=== PATIENT | male | born 1985 | race Caucasian/White ===

== ENCOUNTER 2023-02-04 03:17 | Inpatient (IN) | payer OTHER, SELFPAY ==
--- NOTE | ~2023-02-04 | FL_ITS ---
EXAMINATION: XR FLUOROSCOPY WITH IMAGES CLINICAL INFORMATION: Left tibia pilon fracture. COMPARISON: Left leg CT and x-ray studies dated 02/04/2023. TECHNIQUE: Fluoroscopy Supervised By: Dr. Villalobos. FL/FL guidance in OR IMPRESSION: Fluoroscopic guidance provided for external fixation of the left tibia and fibula. Fluoroscopy Time: 0.2. Cumulative Dose: 0.985 mGy. DAP: 0.0171 Gycm2. Images: 8. FINDINGS/IMPRESSION: Final images show an external fixation device in place with overall good anatomic alignment. Please refer to the operative report for more detailed findings.
--- NOTE | ~2023-02-04 | CT_ITS ---
EXAMINATION: CT LOWER LEG LT W IV CON CLINICAL INFORMATION: Reason for Exam trauma to lower leg COMPARISON: Radiographs from earlier same date TECHNIQUE: Multidetector CT imaging of the left lower leg was performed after the administration of 85 mL Omnipaque 350 intravenous contrast. Coronal and sagittal reformats created on an independent workstation were reviewed. This CT examination was performed using dose optimization techniques as appropriate, variously including the following: *Automated exposure control *Adjustment of mA and/or kV according to patient size (this includes techniques or standardized protocols for targeted exams where dose is matched to indication/reason for exam; i.e. extremities or head) *Use of iterative reconstruction technique DLP: 281 mGy-cm FINDINGS: Extensively comminuted fracture of the tibial plafond and with up to 2 cm displacement of the fracture fragments transversely. The dominant distal medial fracture fragment remains aligned with the talus and is displaced medially 2 cm from the largest component of the fracture which contains remainder of the tibia. There are innumerable intervening comminution fragments. The lateral clear space is widened, and the distal tibias interposed between the talar dome and distal fibula. There is a tiny avulsion fracture involving the posteromedial cortex of the distal fibula which is otherwise intact. There is a nondisplaced transversely oriented fracture through the inferior talus involving the posterior subtalar joint. The included calcaneus is intact. Diffuse soft tissue swelling about the lower extremity and foot. CT/CT lower leg LT w IV con IMPRESSION: * Extensively comminuted intra-articular fracture of the tibial plafond as described. * Tiny avulsion fracture involving the posteromedial cortex of the distal fibula. * Nondisplaced transversely oriented fracture through the inferior talus involving the posterior subtalar joint.
--- NOTE | ~2023-02-04 | XR_ITS ---
EXAMINATION: XR tibia fibula LT 2V, XR foot LT min 3V CLINICAL INFORMATION: Reason for Exam pain/swelling s/p trauma COMPARISON: None. TECHNIQUE: AP and lateral views of the left tib-fib 3 views of left foot FINDINGS: Comminuted fractures of the tibial plafond with splaying at the articular surface with medial displacement of a fracture fragment remaining contiguous with the talar dome and proximal displacement. Fibula is intact. Talar dome intact. No fractures of the foot. Diffuse soft tissue swelling. XR/XR tibia fibula LT 2V IMPRESSION: Pilon fracture as described.
--- NOTE | ~2023-02-04 | XR_ITS ---
EXAMINATION: XR tibia fibula LT 2V, XR foot LT min 3V CLINICAL INFORMATION: Reason for Exam pain/swelling s/p trauma COMPARISON: None. TECHNIQUE: AP and lateral views of the left tib-fib 3 views of left foot FINDINGS: Comminuted fractures of the tibial plafond with splaying at the articular surface with medial displacement of a fracture fragment remaining contiguous with the talar dome and proximal displacement. Fibula is intact. Talar dome intact. No fractures of the foot. Diffuse soft tissue swelling. XR/XR foot LT min 3V IMPRESSION: Pilon fracture as described.
[2023-02-04 03:32] VITALS: BP 114/78; PULSE 79; RESP 18; TEMP 36.4; O2SAT 95; BMI 28.3
--- NOTE | 2023-02-04 04:07 | ED_ITS ---
HPI - Extremity Injury (Lower) General Chief Complaint: Extremity Injury, Lower Stated Complaint: l ankle leg inj Time Seen by Provider: 02/04/23 03:53 Source: patient Mode of arrival: ambulatory History of Present Illness HPI Narrative: This is a 37-year-old male who presents and reports to me that he was on a ladder when it slipped and so he rode it down but then his left leg slipped off and was caught underneath a rung of the ladder whenever he landed on the ground. Patient reports he does have footdrop at baseline but states that he does not have any feeling in his foot now. Patient reports he attempted to be seen at [facility] yesterday but after waiting for 8 hours he left. Related Data Allergies Allergy/AdvReac Type Severity Reaction Status Date / Time Penicillins Allergy Hives Verified 02/04/23 03:31 Review of Systems Review of Systems: Pertinent positives and negatives as stated in HPI PMFSH Past Medical History Source: nursing notes reviewed Social History Social History Smoked in Last 30 Days: Yes Use of substances other than those prescribed or required for medical reasons: Yes Substance Use Type: Opiates Substance Use Frequency: Chronic Longstanding Last Used Substance: Days (ago) Any prior treatment program specific to substance use: No Advance Directives: No Advance Directives Information Provided: Yes Physical Exam Vital Signs: Vital Signs: Last Vital Signs Temp 97.6 F 02/04/23 03:32 Pulse 52 02/04/23 06:21 Resp 12 02/04/23 06:21 BP 121/70 02/04/23 06:21 Pulse Ox 97 02/04/23 06:21 O2 Del Method Room Air 02/04/23 06:21 BMI result Body Mass Index 28.3 VITAL SIGNS: Reviewed. GENERAL: Well developed, well nourished, in no acute distress. HEAD: Normocephalic/atraumatic EYES: PERRLA, EOMI EARS: Ext canals without abnormality NOSE: Nares patent bilateral OROPHARYNX: no oral lesions noted, posterior pharynx clear NECK: Supple, no adenopathy LUNGS: Normal breath sounds. No adventitious sounds or accessory muscle use. SpO2<95> CARDIOVASCULAR: Regular rate and rhythm without noted murmurs ABDOMEN: Soft, non-tender, non-distended with bowel sounds. MUSCULOSKELETAL: No tenderness, deformities, or effusions noted on gross inspection. EXTREMITIES: No cyanosis, clubbing or edema. LLE: There is significant ecchymosis from the knee all the way down the plant security guard ior medial aspect and into the foot, the foot feels significantly taut, toes are able to be moved, there is a noted blister to the lateral malleolus, the calf compartments feel soft SKIN: Inspection of the skin reveals no rashes NEUROLOGIC: Alert and oriented x 4. Strength and sensation to light touch were grossly intact x 4. Medications Administered Generic Name Dose Route Start Last Admin Trade Name Freq PRN Reason Stop Dose Admin Lactated Ringer's 1,000 mls @ 125 mls/hr 02/04/23 06:30 02/04/23 06:39 Lr IVCONT 125 mls/hr .Q8H JOSE ALFREDO Administration Discontinued Medications Generic Name Dose Route Start Last Admin Trade Name Freq PRN Reason Stop Dose Admin Hydromorphone HCl 0.5 mg 02/04/23 05:19 02/04/23 05:47 Hydromorphone Hcl 0.5 Mg/0.5 Ml Syringe IVPUSH 02/04/23 05:20 0.5 mg ONCE ONE Administration Protocol Sodium Chloride 1,000 mls @ 999 mls/hr 02/04/23 04:15 02/04/23 05:48 Ns IV 02/04/23 05:15 Infused .Q1H1M JOSE ALFREDO Infusion Iohexol 85 ml 02/04/23 05:45 02/04/23 05:45 Iohexol 350 Mg/Ml 100 Ml Infus..Btl IV 02/04/23 05:46 85 ml ONCE ONE Administration Ketorolac Tromethamine 15 mg 02/04/23 04:04 02/04/23 04:33 Ketorolac Tromethamine 30 Mg/Ml Vial IVPUSH 02/04/23 04:05 15 mg ONCE ONE Administration Medical Decision Making Medical Decision Making MDM Narrative: 37-year-old male with history and clinical presentation of traumatic injury to the left lower extremity, neurologic changes, he felt greater than 12 hours previously raising concerns for the potential of vascular neurologic compromise, calf compartments feel soft so do not suspect compartment syndrome within these compartments. On prelim review of x-rays there is apparent comminuted tibial fracture. 0416: I discussed case with orthopedic service. Who agrees with Ct scan of extremity and will eval patient in the AM. I reviewed all investigations and hematologic indices are negative for leukocytosis or left shift, there is no thrombocytopenia there is a mild normocytic anemia. Coagulation studies are grossly within normal limits, chemi stry and states are negative for MOE and there are no electrolyte or liver enzyme abnormalities. COVID is negative and x-ray was noted to be positive for pilon fracture, follow-up with CT scan with IV contrast demonstrates consistent findings of pilon fracture but also noted to have a nondisplaced transverse fracture through the inferior talus, a small avulsion fracture of the distal fibula. Patient is much more comfortable on re-evaluation after having receive 0.5 mg of Dilaudid, IV fluids were started. 0710: Orthopedic service has evaluated the patient at bedside and accept admission. Differential Diagnosis Differential Diagnoses: The differential diagnosis associated with the presentation includes Please see the discussion Admission/Observation Consideration of admission/observation: Escalation of care including admission/observation considered Please see the discussion above Consult Healthcare Provider Management of the patient was discussed with: Tank Builder Supervisor Please see the discussion above Lab Data MDM Lab Attestation statement: I reviewed the patient's lab results. Please see the discussion above 02/04/23 04:29 02/04/23 04:29 Labs: Lab Results 02/04/23 02/04/23 02/04/23 Range/Units 04:29 04:29 04:29 WBC 8.5 (4.8-10.8) X10*3/uL RBC 3.82 L (4.60-5.80) X10*6/uL Hgb 11.1 L (14.0-18.0) g/dl Hct 33.6 L (42.0-52.0) % MCV 88.0 (80.0-98.0) fL MCH 29.1 (27.0-33.0) pg MCHC 33.0 (31.0-36.0) g/dl RDW 12.9 (11.0-16.0) % Plt Count 190 (160-400) X10*3/uL MPV 10.6 (9.4-12.4) fL Immature Gran % (Auto) 0.4 (0.0-0.4) % Neut % (Auto) 63.6 (45-73) % Lymph % (Auto) 25.1 (20-40) % Starke % (Auto) 9.8 (2-11) % Eos % (Auto) 0.6 (0-4) % Baso % (Auto) 0.5 (0-2) % Lymph # (Auto) 2.1 (1.2-4.9) X10*3/uL Starke # (Auto) 0.8 (0.1-1.2) X10*3/uL Eos # (Auto) 0.1 (0.0-0.4) X10*3/uL Baso # (Auto) 0.0 (0.0-0.2) X10*3/uL Abs Immat Gran (auto) 0.03 (0.00-0.03) X10*3/uL Absolute Neuts (auto) 5.4 (2.0-8.3) x10*3/uL Absolute Nucleated RBC 0.000 (0.0-0.012) X10*3/uL Nucleated RBC % (auto) 0.0 (0.0-0.2) /100WBC PT 12.8 (11.1-13.3) SEC INR 1.1 (0.9-1.1) Sodium 139 (135-145) mmol/L Potassium 4.0 (3.3-5.1) mmol/L Chloride 103 (96-108) mmol/L Carbon Dioxide 26 (22-29) mmol/L Anion Gap 14 (12-20) BUN 13 (9-16) mg/dL Creatinine 0.73 (0.5-1.4) mg/dL Estim Creat Clear Calc 119.3 Estimated GFR > 60 Random Glucose 131 H (60-115) mg/dL Calcium 9.1 (8.4-10.2) mg/dL Total Bilirubin 0.3 (0.0-1.0) mg/dL AST 25 (5-37) U/L ALT 26 (0-40) U/L Alkaline Phosphatase 57 (39-117) U/L Total Protein 6.6 (6.5-8.0) g/dL Albumin 3.7 (3.5-5.0) g/dL COVID-19 (LALIT) (Negative) COVID-19 Clin Com 02/04/23 Range/Units 04:29 WBC (4.8-10.8) X10*3/uL RBC (4.60-5.80) X10*6/uL Hgb (14.0-18.0) g/dl Hct (42.0-52.0) % MCV (80.0-98.0) fL MCH (27.0-33.0) pg MCHC (31.0-36.0) g/dl RDW (11.0-16.0) % Plt Count (160-400) X10*3/uL MPV (9.4-12.4) fL Immature Gran % (Auto) (0.0-0.4) % Neut % (Auto) (45-73) % Lymph % (Auto) (20-40) % Starke % (Auto) (2-11) % Eos % (Auto) (0-4) % Baso % (Auto) (0-2) % Lymph # (Auto) (1.2-4.9) X10*3/uL Starke # (Auto) (0.1-1.2) X10*3/uL Eos # (Auto) (0.0-0.4) X10*3/uL Baso # (Auto) (0.0-0.2) X10*3/uL Abs Immat Gran (auto) (0.00-0.03) X10*3/uL Absolute Neuts (auto) (2.0-8.3) x10*3/uL Absolute Nucleated RBC (0.0-0.012) X10*3/uL Nucleated RBC % (auto) (0.0-0.2) /100WBC PT (11.1-13.3) SEC INR (0.9-1.1) Sodium (135-145) mmol/L Potassium (3.3-5.1) mmol/L Chloride (96-108) mmol/L Carbon Dioxide (22-29) mmol/L Anion Gap (12-20) BUN (9-16) mg/dL Creatinine (0.5-1.4) mg/dL Estim Creat Clear Calc Estimated GFR Random Glucose (60-115) mg/dL Calcium (8.4-10.2) mg/dL Total Bilirubin (0.0-1.0) mg/dL AST (5-37) U/L ALT (0-40) U/L Alkaline Phosphatase (39-117) U/L Total Protein (6.5-8.0) g/dL Albumin (3.5-5.0) g/dL COVID-19 (LALIT) Negative (Negative) COVID-19 Clin Com See Note Radiology Impression Discussion of test interpretation with radiology: I have reviewed the r adiologist's reading. Radiologist Impression: Please see the discussion above Critical Care Time Critical Care Time Critical Care Time: Yes Total Critical Care Time: 30 Attestation: I personally attest to this time spent taking care of the patient. Discharge Plan Discharge Clinical Impression: Closed pilon fracture of tibia, Fracture of talus, Avulsion fracture of distal fibula Patient Disposition: Admitted As Inpatient
[2023-02-04] MEDS: Ketorolac Tromethamine 30 MG/ML VIAL 15 MG IVPUSH (04:33)
[2023-02-04] MEDS: 0.9 % Sodium Chloride 1,000 ML 999 ML IV (04:33)
[2023-02-04 04:34] LABS: MANUAL DIFF FLAG NO
[2023-02-04 04:36] LABS: Basophils Percent Auto 0.5 % (0-2); Eosinophils Absolute Auto 0.1 X10*3/uL (0.0-0.4); Eosinophils Percent Auto 0.6 % (0-4); Hematocrit 33.6 % (42.0-52.0); Hemoglobin 11.1 g/dl (14.0-18.0); Imm Gran Abs Auto 0.03 X10*3/uL (0.00-0.03); Imm Gran Pct Auto 0.4 % (0.0-0.4); Lymphocytes Absolute Auto 2.1 X10*3/uL (1.2-4.9); Lymphocytes Percent Auto 25.1 % (20-40); Mean Corpuscular Hemoglobin 29.1 pg (27.0-33.0); Mean Platelet Volume 10.6 fL (9.4-12.4); Monocytes Absolute Auto 0.8 X10*3/uL (0.1-1.2); Monocytes Percent Auto 9.8 % (2-11); Neutrophils Absolute Auto 5.4 x10*3/uL (2.0-8.3); Neutrophils Percent Auto 63.6 % (45-73); Platelet Count 190 X10*3/uL (160-400); Red Blood Count 3.82 X10*6/uL (4.60-5.80); Red Cell Distribution Width 12.9 % (11.0-16.0); White Blood Count 8.5 X10*3/uL (4.8-10.8)
--- NOTE | 2023-02-04 04:39 | PC.NURSE ---
Pt aox3. Left leg elevated, ice pack applied. Pt tolerated well. 22G IV line placed on the L FA. Medicated as ordered. Pending lab results and ct scan
[2023-02-04 04:42] LABS: INTERNATIONAL NORM RATIO 1.1 (0.9-1.1); Prothrombin Time 12.8 SEC (11.1-13.3)
[2023-02-04 04:50] LABS: COVID-19 Test Negative (Negative); IDNOW Serial# 6674DD1D
[2023-02-04 04:51] LABS: Alanine Aminotransferase 26 U/L (0-40); Albumin Level 3.7 g/dL (3.5-5.0); Alkaline Phosphatase 57 U/L (39-117); Anion Gap 14 (12-20); Aspartate Amino Transferase 25 U/L (5-37); Bilirubin Total 0.3 mg/dL (0.0-1.0); Blood Urea Nitrogen 13 mg/dL (9-16); Calcium 9.1 mg/dL (8.4-10.2); Carbon Dioxide 26 mmol/L (22-29); Chloride 103 mmol/L (96-108); Creatinine Clr Calc Pharmacy 119.3; Estimated Glomerular Filt Rate > 60; Glucose Random 131 mg/dL (60-115); Sodium 139 mmol/L (135-145); Total Protein 6.6 g/dL (6.5-8.0)
[2023-02-04] MEDS: iohexoL 350 MG/ML 100 ML INFUS..BTL 85 ML IV (05:45)
[2023-02-04] MEDS: HYDROmorphone HCl 0.5 MG/0.5 ML SYRINGE IVPUSH (05:47)
[2023-02-04 06:21] VITALS: BP 121/70; PULSE 52; RESP 12; O2SAT 97
[2023-02-04] MEDS: Lactated Ringers 1,000 ML 125 ML IVCONT (06:39)
--- NOTE | 2023-02-04 07:19 | PM.HPOR ---
History of Present Illness History of Present Illness Date of Service: 02/04/23 Chief complaint: Left tibial pilon fracture Narrative: Nakul Paul is a 37 year old male with no significant PMH who presented to the ED overnight stating that he was on a ladder when it slipped and so he rode it down but then his left leg slipped off and was caught underneath a rung of the ladder when he landed on the ground.? Patient reports he does have footdrop at baseline reports numbness and tingling.? Patient reports he attempted to be seen at [facility] yesterday but after waiting for 8 hours he left. X-rays obtained in the ED revealed a tibial pilon fracture. The patient was admitted to the orthopedic service for further evaluation and treatment. Review of Systems Review of Systems: Yes all other systems are reviewed and are negative [facility] Social History Social History Smoked in Last 30 Days: Yes Use of substances other than those prescribed or required for medical reasons: Yes Substance Use Type: Opiates Substance Use Frequency: Chronic Longstanding Last Used Substance: Days (ago) Any prior treatment program specific to substance use: No Advance Directives: No Advance Directives Information Provided: Yes Meds Allergies Allergy/AdvReac Type Severity Reaction Status Date / Time Penicillins Allergy Hives Verified 02/04/23 03:31 Active Medications: Current Medications Lactated Ringer's (Lr) 1,000 mls @ 125 mls/hr IVCONT .Q8H JOSE ALFREDO Last Admin: 02/04/23 06:39 Dose: 125 mls/hr Home Medications Medication Instructions Recorded Confirmed Last Taken Type buprenorphine 300 mg/1.5 mL 300 mg subcut Q OTHER DAY 02/04/23 Unknown History solution,exten.rel.subcutaneous syringe (Sublocade) buprenorphine 8 mg-naloxone 2 mg 1 film sublingual BID 02/04/23 Unknown History sublingual film (Suboxone) clonazepam 1 mg tablet 1 mg PO TID PRN Anxiety 02/04/23 Unknown History clonidine HCl 0.1 mg tablet 0.1 mg PO Q4-6H PRN Anxiety 02/04/23 Unknown History hydroxyzine HCl 50 mg tablet 50 mg PO Q6-8H PRN Anxiety 02/04/23 Unknown History ibuprofen 600 mg tablet 600 mg PO Q6H PRN Pain 02/04/23 Unknown History trazodone 50 mg tablet 50 - 100 mg PO BEDTIME 02/04/23 Unknown History Physical Exam Vital Signs: Vital Signs: Last Vital Signs Temp 97.6 F 02/04/23 03:32 Pulse 52 02/04/23 06:21 Resp 12 02/04/23 06:21 BP 121/70 02/04/23 06:21 Pulse Ox 97 02/04/23 06:21 O2 Del Method Room Air 02/04/23 06:21 BMI result Body Mass Index 28.3 Const: General: cooperative, healthy appearing and no acute distress Resp: Effort & Inspection: normal respiratory effort and able to speak in complete sentences Cardio: Rate: regular rate Peripheral pulses: Peripheral pulses 2+ throughout GI: Palpation (GI): Soft to palpation Skin: Lesions: no lesions Rashes: no rashes Extrem: Other: Left lower extremity is splinted in posterior splint. Able to move digits. Reports numbness and tingling in all digits. Capillary refill is brisk. Ecchymosis is seen proximal tibial at the top of the splint. Results Labs 02/04/23 04:29 02/04/23 04:29 Labs: Abnormal lab results 02/04/23 02/04/23 Range/Units 04:29 04:29 RBC 3.82 L (4.60-5.80) X10*6/uL Hgb 11.1 L (14.0-18.0) g/dl Hct 33.6 L (42.0-52.0) % Random Glucose 131 H (60-115) mg/dL H & H 02/04/23 Range/Units 04:29 Hgb 11.1 L (14.0-18.0) g/dl Hct 33.6 L (42.0-52.0) % Coagulation 02/04/23 Range/Units 04:29 INR 1.1 (0.9-1.1) All other labs normal. Assessment and Plan (1) Closed pilon fracture of tibia: Status: Acute I discussed the case with Dr. Villalobos and explained the extent of the injury to the patient and options available which include surgical intervention. I explained the procedure in detail along with the length of recovery and rehab course. I explained the risk, benefits and alternatives. Risk including, but not limited to infection, blood clots, bleeding, non union or malunion and nerve/tissue damage to surrounding areas. I answered all their questions and with their understanding they have consented to move forward with Operative Fixation of the left tibia. The patient will be T&S and NPO after midnight. Will re-evaluate patients swelling tomorrow morning for possibility of surgical intervention Tu/Sat. Patient understands and accepts. (2) Avulsion fracture of distal fibula: Status: Acute Time Spent With Patient Time: Total time managing care of this patient today ____ minutes. Quality Stroke Does the patient have a stroke diagnosis?: No VTE Prior VTE?: No VTE Risk Level:: Medical - moderate - high VTE Device Contraindication: N/A - Device Ordered VTE Drug Contraindication: N/A - Med Ordered Procedures Date of Service Date of Service: 02/04/23
--- NOTE | 2023-02-04 08:32 | PHA.MEDREC ---
Pharmacy Consult ? Medication Reconciliation Pharmacy has completed the medication reconciliation. Patient is to be on sublocade but never got his injection, therefore, right now hes on suboxone BID
[2023-02-04] MEDS: Docusate Sodium 100 MG CAPSULE PO ×2 (09:09→20:23)
[2023-02-04] MEDS: ondansetron HCL 4 MG/2 ML VIAL IVPUSH (09:10)
[2023-02-04] MEDS: HYDROmorphone HCl 0.5 MG/0.5 ML SYRINGE 0.25 MG IVPUSH (09:10)
[2023-02-04] MEDS: 0.9 % Sodium Chloride Flush 3 ML SYRINGE IVFLUSH (09:11)
[2023-02-04 09:34] VITALS: BP 119/73; PULSE 43; RESP 18; TEMP 36.6; O2SAT 96
--- NOTE | 2023-02-04 10:00 | PC.NURSE ---
Pt reported 9/10 pain in L ankle. IV PRN pain med given as documented. Pt remains NPO awaiting ortho consult. Scheduled 729 LR not started d/t previous LR still running.
--- NOTE | 2023-02-04 12:11 | P.CONHOSP_ITS ---
History of Present Illness Data of Consult Service Date: 02/04/23 Primary Care Provider: None Physician HPI 37 year old male with history of opioid use desorder who fell off a ldder and sustained tibia Pilon fracture of left. He has no acute medical issues at this point..he endorses no chest pain, no heart failure symptoms and is otherwise active Review of Systems Review of Systems: pain in the injured limb [facility] Social History Patient Tobacco Use Status: Tobacco use Unknown Smoked in Last 30 Days: Yes Use of substances other than those prescribed or required for medical reasons: Yes Substance Use Type: Opiates Substance Use Frequency: Chronic Longstanding Last Used Substance: Days (ago) Any prior treatment program specific to substance use: No Advance Directives: No Advance Directives Information Provided: Yes Nutrition Risks: No Nutritional Risk Meds Allergies Allergy/AdvReac Type Severity Reaction Status Date / Time Penicillins Allergy Hives Verified 02/04/23 03:31 Active Medications: Current Medications Acetaminophen (Acetaminophen 325 Mg Tablet) 650 mg PO Q6H PRN PRN Reason: Pain, Mild (Pain Scale 1-3) Celecoxib (Celecoxib 200 Mg Capsule) 200 mg PO BID [facility] Last Admin: 02/04/23 09:23 Dose: Not Given Docusate Sodium (Docusate Sodium 100 Mg Capsule) 100 mg PO BID [facility] Last Admin: 02/04/23 09:09 Dose: 100 mg Hydromorphone HCl (Hydromorphone Hcl 0.5 Mg/0.5 Ml Syringe) 0.25 mg IVPUSH Q4H PRN; Protocol PRN Reason: Pain, Severe (Pain Scale 7-10) Last Admin: 02/04/23 09:10 Dose: 0.25 mg Lactated Ringer's (Lr) 1,000 mls @ 125 mls/hr IVCONT .Q8H [facility] Last Admin: 02/04/23 06:39 Dose: 125 mls/hr Lactated Ringer's (Lr) 1,000 mls @ 100 mls/hr IVCONT .Q10H [facility] Last Admin: 02/04/23 09:12 Dose: Not Given Ondansetron HCl (Ondansetron Hcl 4 Mg/2 Ml Vial) 4 mg IVPUSH Q8H PRN PRN Reason: Nausea and Vomiting Last Admin: 02/04/23 09:10 Dose: 4 mg Oxycodone HCl (Oxycodone Hcl Immed Release 5 Mg Tablet) 5 mg PO Q4H PRN PRN Reason: Pain, Moderate(Pain Scale 4-6) Oxycodone HCl (Oxycodone Hcl Er 10 Mg Tab.Er.12h) 10 mg PO BID [facility] Last Admin: 02/04/23 09:12 Dose: Not Given Sodium Chloride (0.9 % Sodium Chloride Flush 3 Ml Syringe) 3 ml IVFLUSH QSHIFT [facility] Last Admin: 02/04/23 09:11 Dose: 3 ml Home Medications Medication Instructions Recorded Confirmed Last Taken Type buprenorphine 300 mg/1.5 mL 300 mg subcut Q OTHER DAY 02/04/23 02/04/23 Unknown History solution,exten.rel.subcutaneous syringe (Sublocade) buprenorphine 8 mg-naloxone 2 mg 1 film sublingual BID 02/04/23 02/04/23 Unknown History sublingual film (Suboxone) clonazepam 1 mg tablet 1 mg PO TID PRN Anxiety 02/04/23 02/04/23 Unknown History clonidine HCl 0.1 mg tablet 0.1 mg PO Q4-6H PRN Anxiety 02/04/23 02/04/23 Unknown History hydroxyzine HCl 50 mg tablet 50 mg PO Q6-8H PRN Anxiety 02/04/23 02/04/23 Unknown History ibuprofen 600 mg tablet 600 mg PO Q6H PRN Pain 02/04/23 02/04/23 Unknown History trazodone 50 mg tablet 50 - 100 mg PO BEDTIME 02/04/23 02/04/23 Unknown History Physical Exam Vital Signs and Narrative: Vital Signs: Last Vital Signs Temp 97.8 F 02/04/23 09:34 Pulse 43 L 02/04/23 09:34 Resp 18 02/04/23 09:34 BP 119/73 02/04/23 09:34 Pulse Ox 96 02/04/23 09:34 O2 Del Method Room Air 02/04/23 09:34 BMI result Body Mass Index 28.3 Const: Other: General: AO X 3, no acute distress Resp: CTA bilateral CVS: S1,S2,RRR GI: +BS, NT, no distention Skin: No rash ortho: left lower ext splint Neuro: motor grossly intact Psych: appropriate affect Results Labs 02/04/23 04:29 08/07/23 04:29 Labs: Laboratory Results - last 24 hr 02/04/23 02/04/23 02/04/23 04:29 04:29 04:29 MCV 88.0 MCH 29.1 MCHC 33.0 RDW 12.9 Plt Count 190 MPV 10.6 Immature Gran % (Auto) 0.4 Neut % (Auto) 63.6 Lymph % (Auto) 25.1 Page % (Auto) 9.8 Eos % (Auto) 0.6 Baso % (Auto) 0.5 Lymph # (Auto) 2.1 Page # (Auto) 0.8 Eos # (Auto) 0.1 Baso # (Auto) 0.0 Abs Immat Gran (auto) 0.03 Absolute Neuts (auto) 5.4 Absolute Nucleated RBC 0.000 Nucleated RBC % (auto) 0.0 PT 12.8 INR 1.1 Anion Gap 14 Estim Creat Clear Calc 119.3 Estimated GFR > 60 Random Glucose 131 H Calcium 9.1 Total Bilirubin 0.3 AST 25 ALT 26 Alkaline Phosphatase 57 Total Protein 6.6 Albumin 3.7 COVID-19 (LALIT) COVID-19 Clin Com Blood Type Antibody Screen 02/04/23 02/04/23 04:29 07:41 MCV MCH MCHC RDW Plt Count MPV Immature Gran % (Auto) Neut % (Auto) Lymph % (Auto) Page % (Auto) Eos % (Auto) Baso % (Auto) Lymph # (Auto) Page # (Auto) Eos # (Auto) Baso # (Auto) Abs Immat Gran (auto) Absolute Neuts (auto) Absolute Nucleated RBC Nucleated RBC % (auto) PT INR Anion Gap Estim Creat Clear Calc Estimated GFR Random Glucose Calcium Total Bilirubin AST ALT Alkaline Phosphatase Total Protein Albumin COVID-19 (LALIT) Negative COVID-19 Clin Com See Note Blood Type A Positive Antibody Screen NEGATIVE Imaging Radiologist's Impressions: Impressions Foot X-Ray 02/04/23 03:52 IMPRESSION: Pilon fracture as described. Tibia/Fibula X-Ray 02/04/23 03:52 IMPRESSION: Pilon fracture as described. Lower Extremity CT 02/04/23 05:55 IMPRESSION: * Extensively comminuted intra-articular fracture of the tibial plafond as described. * Tiny avulsion fracture involving the posteromedial cortex of the distal fibula. * Nondisplaced transversely oriented fracture through the inferior talus involving the posterior subtalar joint. Assessment and Plan (1) Closed pilon fracture of tibia: Status: Acute Plan tibial pilon fracture--management per ortho h/o opioid use, not withdrawing,can use ativn, clonidine to control withrawal symptoms if needed, alternatively can consult addiction meds need no further cardiopulmonary testing if operation needed Time Spent With Patient Time: Total time managing care of this patient today ____ minutes.
[2023-02-04 12:55] VITALS: BP 113/83; PULSE 54; RESP 16; TEMP 36.9; O2SAT 99
[2023-02-04] MEDS: Lactated Ringers 1,000 ML 100 ML IVCONT (13:59)
[2023-02-04 15:33] VITALS: BP 125/78; PULSE 60; RESP 20; TEMP 36.9
[2023-02-04] MEDS: oxyCODONE HCl ER 10 MG TAB.ER.12H PO (20:23)
[2023-02-04 20:58] VITALS: BP 125/82; PULSE 63; RESP 16; TEMP 37.1; O2SAT 98
--- NOTE | 2023-02-04 23:06 | PC.NURSE ---
Urine specimen collected and sent to the lab for analysis. Awaiting results. Primary RN (Martha) aware.
[2023-02-04 23:10] LABS: Appearance Urine Clear; Color Urine Yellow; Glucose Urine UA Negative (Negative); Leukocyte Esterase Urine Negative (Negative); Nitrite Urine Negative (Negative); PH 7.5 (5.0-9.0); Specific Gravity - Urine 1.015 (1.005-1.025); Urine Blood Negative (Negative); Urine Ketones Negative (Negative); Urine Protein Negative (Neg-Trace)
[2023-02-04 23:18] LABS: Amphetamine Screen Urine Not Detected (Not Detect); Barbiturates, Urine Not Detected (Not Detect); Benzodiazepines Screen Urine Not Detected (Not Detect); Cannabinoid Screen Urine Not Detected (Not Detect); Cocaine Screen Urine POSITIVE (Not Detect); Fentanyl, urine POSITIVE (Not Detect); Opiate Screen Urine POSITIVE (Not Detect); Phencyclidine Screen Urine Not Detected (Not Detect)
--- NOTE | 2023-02-04 23:36 | PC.NURSE ---
Report received from off-going RN at 2300 hours. Pt fell on Saturday, injuring LLE. Pt is easily arousable with verbal stimuli, reports ongoing pain and throbbing in LLE. Has patent 20G IV in left FA. No other complaints/concerns at this time. Denies any needs/wants. Will continue to monitor. CSM are intact on affected side, skin is cool and dry.
[2023-02-05] VITALS (19 sets, daily range): BP systolic 145–169; BP diastolic 74–110; PULSE 51–89; RESP 8–22; TEMP 36.1–37.2; O2SAT 95–99
[2023-02-05] MEDS: HYDROmorphone HCl 0.5 MG/0.5 ML SYRINGE 0.25 MG IVPUSH ×3 (00:22→11:35)
[2023-02-05] MEDS: Lactated Ringers 1,000 ML 100 ML IVCONT ×3 (04:07→18:15)
[2023-02-05] MEDS: 0.9 % Sodium Chloride Flush 3 ML SYRINGE IVFLUSH (04:08)
[2023-02-05 05:31] LABS: MANUAL DIFF FLAG NO
[2023-02-05 05:34] LABS: Basophils Percent Auto 0.3 % (0-2); Eosinophils Absolute Auto 0.1 X10*3/uL (0.0-0.4); Eosinophils Percent Auto 1.1 % (0-4); Hematocrit 34.3 % (42.0-52.0); Hemoglobin 11.4 g/dl (14.0-18.0); Imm Gran Abs Auto 0.03 X10*3/uL (0.00-0.03); Imm Gran Pct Auto 0.3 % (0.0-0.4); Lymphocytes Absolute Auto 2.2 X10*3/uL (1.2-4.9); Lymphocytes Percent Auto 24.9 % (20-40); Mean Corpuscular HGB Conc 33.2 g/dl (31.0-36.0); Mean Corpuscular Hemoglobin 29.2 pg (27.0-33.0); Mean Corpuscular Volume 87.7 fL (80.0-98.0); Mean Platelet Volume 10.9 fL (9.4-12.4); Monocytes Absolute Auto 0.6 X10*3/uL (0.1-1.2); Monocytes Percent Auto 7.2 % (2-11); Neutrophils Absolute Auto 5.9 x10*3/uL (2.0-8.3); Neutrophils Percent Auto 66.2 % (45-73); Platelet Count 197 X10*3/uL (160-400); Red Blood Count 3.91 X10*6/uL (4.60-5.80); Red Cell Distribution Width 12.8 % (11.0-16.0); White Blood Count 8.9 X10*3/uL (4.8-10.8)
[2023-02-05 05:55] LABS: Anion Gap 14 (12-20); Blood Urea Nitrogen 10 mg/dL (9-16); Calcium 9.1 mg/dL (8.4-10.2); Carbon Dioxide 24 mmol/L (22-29); Chloride 110 mmol/L (96-108); Creatinine Clr Calc Pharmacy 126.2; Estimated Glomerular Filt Rate > 60; Glucose Fasting 106 mg/dL (60-99); Potassium 4.7 mmol/L (3.3-5.1); Sodium 143 mmol/L (135-145)
--- NOTE | 2023-02-05 07:37 | PC.NURSE ---
pt a&ox3. respirations even and unlabored. left foot swelling with bruising visible in the left upper calf. CSM in tact, pt able to move toes. previous shift documented not given on the 729, was unable to scan for the 729, but it is up and running at the 100ml per hour.
--- NOTE | 2023-02-05 09:31 | PC.NURSE ---
respirations even and unlabored. pt sleeping. will hold 0900 meds until pt is awake.
--- NOTE | 2023-02-05 10:16 | PC.NURSE ---
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
[2023-02-05] MEDS: oxyCODONE HCl ER 10 MG TAB.ER.12H PO ×2 (11:35→20:39)
[2023-02-05] MEDS: Docusate Sodium 100 MG CAPSULE PO ×2 (11:36→20:39)
--- NOTE | 2023-02-05 11:44 | P.CONAN_ITS ---
HPI - Anesthesia Eval Consult details Narrative: External fixator of tibial plateau fx PMFSH Active Problems Active Problems: All Active Problems (Updated 02/04/23 @ 07:11 by Rosa Clay MD) Closed pilon fracture of tibia (Acute) Fracture of talus (Acute) Avulsion fracture of distal fibula (Acute) Family History Family history of problems with anesthesia: No Surgical History History of Problems with Anesthesia: No Social History Social History Patient Tobacco Use Status: Tobacco use Unknown Smoked in Last 30 Days: Yes Use of substances other than those prescribed or required for medical reasons: Yes Substance Use Type: Opiates Substance Use Frequency: Chronic Longstanding Last Used Substance: Days (ago) Any prior treatment program specific to substance use: No Advance Directives: No Advance Directives Information Provided: Yes Nutrition Risks: No Nutritional Risk Narrative Narrative: Polysubstance abuse, on suboxan Meds Allergies Allergy/AdvReac Type Severity Reaction Status Date / Time Penicillins Allergy Hives Verified 02/04/23 03:31 Active Medications: Current Medications Acetaminophen (Acetaminophen 325 Mg Tablet) 650 mg PO Q6H PRN PRN Reason: Pain, Mild (Pain Scale 1-3) Celecoxib (Celecoxib 200 Mg Capsule) 200 mg PO BID [facility] Last Admin: 02/04/23 20:25 Dose: Not Given Docusate Sodium (Docusate Sodium 100 Mg Capsule) 100 mg PO BID [facility] Last Admin: 02/05/23 11:36 Dose: 100 mg Hydromorphone HCl (Hydromorphone Hcl 0.5 Mg/0.5 Ml Syringe) 0.25 mg IVPUSH Q4H PRN; Protocol PRN Reason: Pain, Severe (Pain Scale 7-10) Last Admin: 02/05/23 11:35 Dose: 0.25 mg Lactated Ringer's (Lr) 1,000 mls @ 100 mls/hr IVCONT .Q10H [facility] Last Admin: 02/05/23 07:30 Dose: 100 mls/hr Ondansetron HCl (Ondansetron Hcl 4 Mg/2 Ml Vial) 4 mg IVPUSH Q8H PRN PRN Reason: Nausea and Vomiting Last Admin: 02/04/23 09:10 Dose: 4 mg Oxycodone HCl (Oxycodone Hcl Immed Release 5 Mg Tablet) 5 mg PO Q4H PRN PRN Reason: Pain, Moderate(Pain Scale 4-6) Oxycodone HCl (Oxycodone Hcl Er 10 Mg Tab.Er.12h) 10 mg PO BID [facility] Last Admin: 02/05/23 11:35 Dose: 10 mg Sodium Chloride (0.9 % Sodium Chloride Flush 3 Ml Syringe) 3 ml IVFLUSH QSHIFT [facility] Last Admin: 02/05/23 09:02 Dose: Not Given Home Medications Medication Instructions Recorded Confirmed Last Taken Type buprenorphine 300 mg/1.5 mL 300 mg subcut Q OTHER DAY 02/04/23 02/04/23 Unknown History solution,exten.rel.subcutaneous syringe (Sublocade) buprenorphine 8 mg-naloxone 2 mg 1 film sublingual BID 02/04/23 02/04/23 Unknown History sublingual film (Suboxone) clonazepam 1 mg tablet 1 mg PO TID PRN Anxiety 02/04/23 02/04/23 Unknown History clonidine HCl 0.1 mg tablet 0.1 mg PO Q4-6H PRN Anxiety 02/04/23 02/04/23 Unknown History hydroxyzine HCl 50 mg tablet 50 mg PO Q6-8H PRN Anxiety 02/04/23 02/04/23 Unknown History ibuprofen 600 mg tablet 600 mg PO Q6H PRN Pain 02/04/23 02/04/23 Unknown History trazodone 50 mg tablet 50 - 100 mg PO BEDTIME 02/04/23 02/04/23 Unknown History Exam Exam Date and Time: February 05, 2023 114 Height,Weight and Vital Signs: Height 5 ft 2 in Weight 70.307 kg Last Vital Signs Temp 98.4 F 02/05/23 07:20 Pulse 56 02/05/23 11:32 Resp 16 02/05/23 11:32 BP 150/81 H 02/05/23 11:32 Pulse Ox 98 02/05/23 11:32 O2 Del Method Room Air 02/05/23 11:32 Pertinent Lab Results Pertinent Lab Results: Laboratory Tests 02/04/23 02/04/23 02/04/23 04:29 04:29 04:29 WBC 8.5 RBC 3.82 L Hgb 11.1 L Hct 33.6 L MCV 88.0 MCH 29.1 MCHC 33.0 RDW 12.9 Plt Count 190 MPV 10.6 Immature Gran % (Auto) 0.4 Neut % (Auto) 63.6 Lymph % (Auto) 25.1 [place] % (Auto) 9.8 Eos % (Auto) 0.6 Baso % (Auto) 0.5 Lymph # (Auto) 2.1 [place] # (Auto) 0.8 Eos # (Auto) 0.1 Baso # (Auto) 0.0 Abs Immat Gran (auto) 0.03 Absolute Neuts (auto) 5.4 Absolute Nucleated RBC 0.000 Nucleated RBC % (auto) 0.0 PT 12.8 INR 1.1 Sodium 139 Potassium 4.0 Chloride 103 Carbon Dioxide 26 Anion Gap 14 BUN 13 Creatinine 0.73 Estim Creat Clear Calc 119.3 Estimated GFR > 60 Random Glucose 131 H Fasting Glucose Calcium 9.1 Total Bilirubin 0.3 AST 25 ALT 26 Alkaline Phosphatase 57 Total Protein 6.6 Albumin 3.7 Urine Color Urine Appearance Urine pH Ur Specific [place] Urine Protein Urine Glucose (UA) Urine Ketones Urine Blood Urine Nitrite Ur Leukocyte Esterase Urine Opiates Screen Urine Fentanyl Screen Ur Barbiturates Screen Ur Phencyclidine Scrn Ur Amphetamines Screen U Benzodiazepines Scrn Urine Cocaine Screen U Marijuana (THC) Screen COVID-19 (LALIT) COVID-19 Clin Com Blood Type Antibody Screen 02/04/23 02/04/23 02/04/23 04:29 07:41 23:02 WBC RBC Hgb Hct MCV MCH MCHC RDW Plt Count MPV Immature Gran % (Auto) Neut % (Auto) Lymph % (Auto) [place] % (Auto) Eos % (Auto) Baso % (Auto) Lymph # (Auto) [place] # (Auto) Eos # (Auto) Baso # (Auto) Abs Immat Gran (auto) Absolute Neuts (auto) Absolute Nucleated RBC Nucleated RBC % (auto) PT INR Sodium Potassium Chloride Carbon Dioxide Anion Gap BUN Creatinine Estim Creat Clear Calc Estimated GFR Random Glucose Fasting Glucose Calcium Total Bilirubin AST ALT Alkaline Phosphatase Total Protein Albumin Urine Color Yellow Urine Appearance Clear Urine pH 7.5 Ur Specific [place] 1.015 Urine Protein Negative Urine Glucose (UA) Negative Urine Ketones Negative Urine Blood Negative Urine Nitrite Negative Ur Leukocyte Esterase Negative Urine Opiates Screen Urine Fentanyl Screen Ur Barbiturates Screen Ur Phencyclidine Scrn Ur Amphetamines Screen U Benzodiazepines Scrn Urine Cocaine Screen U Marijuana (THC) Screen COVID-19 (LALIT) Negative COVID-19 Clin Com See Note Blood Type A Positive Antibody Screen NEGATIVE 02/04/23 02/05/23 02/05/23 23:02 05:21 05:21 WBC 8.9 RBC 3.91 L Hgb 11.4 L Hct 34.3 L MCV 87.7 MCH 29.2 MCHC 33.2 RDW 12.8 Plt Count 197 MPV 10.9 Immature Gran % (Auto) 0.3 Neut % (Auto) 66.2 Lymph % (Auto) 24.9 [place] % (Auto) 7.2 Eos % (Auto) 1.1 Baso % (Auto) 0.3 Lymph # (Auto) 2.2 [place] # (Auto) 0.6 Eos # (Auto) 0.1 Baso # (Auto) 0.0 Abs Immat Gran (auto) 0.03 Absolute Neuts (auto) 5.9 Absolute Nucleated RBC 0.000 Nucleated RBC % (auto) 0.0 PT INR Sodium 143 Potassium 4.7 Chloride 110 H Carbon Dioxide 24 Anion Gap 14 BUN 10 Creatinine 0.69 Estim Creat Clear Calc 126.2 Estimated GFR > 60 Random Glucose Fasting Glucose 106 H Calcium 9.1 Total Bilirubin AST ALT Alkaline Phosphatase Total Protein Albumin Urine Color Urine Appearance Urine pH Ur Specific [place] Urine Protein Urine Glucose (UA) Urine Ketones Urine Blood Urine Nitrite Ur Leukocyte Esterase Urine Opiates Screen POSITIVE H Urine Fentanyl Screen POSITIVE H Ur Barbiturates Screen Not Detected Ur Phencyclidine Scrn Not Detected Ur Amphetamines Screen Not Detected U Benzodiazepines Scrn Not Detected Urine Cocaine Screen POSITIVE H U Marijuana (THC) Screen Not Detected COVID-19 (LALIT) COVID-19 Clin Com Blood Type Antibody Screen Airway Mallampati Class: II TM Dist: >3cm Neck ROM: Limited Heart: rrr Lungs: cta Assessment and Plan Assessment Anesthesia Assessment: Anesthesia Plan Discussed and Chart Reviewed Final Anesthetic Review Family History of Problems with Anesthesia: No History of Problems with Anesthesia: No NPO: Yes ASA Class: III Final Preanesthetic Review: No Changes in Pt Med Stat, Meds/Allgs Chart Reviewed, Consent Obtained/Reviewed and Anes Risks/Benef Reviewed Patient Risk: Intermediate Procedure Risk: Low Anesthetic Plan Anesthetic Plan: GA and Agree w/ Assess. and Plan Disposition: Standard PACU
--- NOTE | 2023-02-05 11:48 | PC.NURSE ---
pt changed over for OR.
--- NOTE | 2023-02-05 12:01 | PC.NURSE ---
pt transferred to short stay.
--- NOTE | 2023-02-05 12:25 | PC.NURSE ---
dr. johnson and dr. robertson aware of urine tox. screen results. okay to proceed.
--- NOTE | 2023-02-05 13:11 | MHC.SHP ---
Pre-Procedural Eval Section A Date of Service: 02/05/23 The patient is an INPATIENT: Yes Changes since office visit: No Cold of Flu in the past 2 weeks, No New Medical Problems, No Changes in Medication and No Patient answered all questions The History & Physical has been completed within 30 days and I have reviewed it.: Yes Section B Chief Complaint: Left tibial pilon fracture Allergies: Allergies Allergy/AdvReac Type Severity Reaction Status Date / Time Penicillins Allergy Hives Verified 02/04/23 03:31 Plan I have reviewed the history and physical and performed a pertinent physical examination on my patient. No changes have occurred unless specified. Time Spent With Patient Time: Total time managing care of this patient today ____ minutes.
[2023-02-05] MEDS: ceFAZolin Sodium/Dextrose,Iso 2 GM/50 ML PIGGYBACK IV ×2 (13:43→18:15)
[2023-02-05] MEDS: HYDROmorphone HCl 0.5 MG/0.5 ML SYRINGE IVPUSH ×3 (14:59→15:59)
--- NOTE | 2023-02-05 14:59 | PM.OP ---
Brief Operative Note Date of Service: 02/05/23 Pre-op diagnosis: tibial plafond fracture left Post-op diagnosis: same Procedure: External fixation left tibia Implants: none Surgeon: Tomy Villalobos MD Anesthesia: GETA and local Was an Licensed Sales Producer used for this Procedure?: Yes Licensed Sales Producer: Crystal Macedo Estimated blood loss (mL): 20 IV fluids (mL): 600 Pathology: none sent Condition: stable Disposition: PACU
[2023-02-05] MEDS: fentaNYL citrate/PF 100 MCG/2 ML VIAL 50 MCG IVPUSH ×4 (15:14→15:34)
[2023-02-05] MEDS: oxyCODONE HCl Immed Release 5 MG TABLET 10 MG PO (15:59)
[2023-02-05] MEDS: Celecoxib 200 MG CAPSULE PO (20:39)
[2023-02-05] MEDS: traZODone HCL 50 MG TABLET PO (20:39)
[2023-02-05] MEDS: Acetaminophen 1,000 MG/100 ML PIGGYBACK 400 MG IV (20:40)
[2023-02-06] MEDS: Acetaminophen 1,000 MG/100 ML PIGGYBACK 400 MG IV ×3 (02:05→15:02)
[2023-02-06 03:30] VITALS: BP 116/73; PULSE 55; RESP 18; TEMP 36.9; O2SAT 96
[2023-02-06] MEDS: Lactated Ringers 1,000 ML 100 ML IVCONT (05:08)
[2023-02-06 05:36] LABS: MANUAL DIFF FLAG NO
[2023-02-06 05:38] LABS: Basophils Percent Auto 0.1 % (0-2); Hematocrit 36.7 % (42.0-52.0); Hemoglobin 12.3 g/dl (14.0-18.0); Imm Gran Abs Auto 0.06 X10*3/uL (0.00-0.03); Imm Gran Pct Auto 0.5 % (0.0-0.4); Lymphocytes Absolute Auto 1.2 X10*3/uL (1.2-4.9); Lymphocytes Percent Auto 10.2 % (20-40); Mean Corpuscular HGB Conc 33.5 g/dl (31.0-36.0); Mean Corpuscular Hemoglobin 28.8 pg (27.0-33.0); Mean Corpuscular Volume 85.9 fL (80.0-98.0); Mean Platelet Volume 10.3 fL (9.4-12.4); Monocytes Absolute Auto 0.7 X10*3/uL (0.1-1.2); Monocytes Percent Auto 5.4 % (2-11); Neutrophils Percent Auto 83.8 % (45-73); Platelet Count 261 X10*3/uL (160-400); Red Blood Count 4.27 X10*6/uL (4.60-5.80); Red Cell Distribution Width 12.6 % (11.0-16.0); White Blood Count 11.9 X10*3/uL (4.8-10.8)
[2023-02-06 05:55] LABS: Anion Gap 10 (12-20); Blood Urea Nitrogen 9 mg/dL (9-16); Calcium 9.3 mg/dL (8.4-10.2); Carbon Dioxide 28 mmol/L (22-29); Chloride 107 mmol/L (96-108); Estimated Glomerular Filt Rate > 60; Glucose Fasting 134 mg/dL (60-99); Potassium 3.9 mmol/L (3.3-5.1); Sodium 141 mmol/L (135-145)
--- NOTE | 2023-02-06 07:24 | PM.PNORT ---
Subjective Subjective Date of Service: 02/06/23 Interval history: POD1 s/p left tibial external fixator. Pain is managed. No overnight events. No additional complaints. Physical Exam Vital Signs: Vital Signs: Last Vital Signs Temp 98.5 F 02/06/23 03:30 Pulse 55 02/06/23 03:30 Resp 18 02/06/23 03:30 BP 116/73 02/06/23 03:30 Pulse Ox 96 02/06/23 03:30 O2 Del Method Room Air 02/06/23 03:30 O2 Flow Rate 2 02/05/23 16:15 BMI result Body Mass Index 28.3 Const: General: cooperative, healthy appearing and no acute distress Resp: Effort & Inspection: normal respiratory effort and able to speak in complete sentences Cardio: Rate: regular rate Peripheral pulses: Peripheral pulses 2+ throughout GI: Palpation (GI): Soft to palpation Skin: Lesions: no lesions Rashes: no rashes Extrem: Other: RLE Ex-Fix intact. No drainage. NVI. Procedures Date of Service Date of Service: 02/06/23 Progress Note: A&P Assessment and plan (1) Closed pilon fracture of tibia: Status: Acute Assessment and Plan: Continue pain mgmnt Begin dvt ppx begin PT for RLE NWB Ex-Fix Dispo planning-Pending PT eval, pain mgmnt (2) Avulsion fracture of distal fibula: Status: Acute (3) Fracture of talus: Status: Acute Assessment and Plan: Continue pain mgmnt begin PT for NWB LLE s/p ex-fix Dispo planning-Pending PT eval, pain mgmnt, will need rehab placement Time Spent With Patient Time: Total time managing care of this patient today ____ minutes. Quality Stroke Does the patient have a stroke diagnosis?: No VTE Prior VTE?: No VTE Risk Level:: Medical - moderate - high VTE Device Contraindication: N/A - Device Ordered VTE Drug Contraindication: N/A - Med Ordered
[2023-02-06 07:39] VITALS: BP 142/93; PULSE 68; RESP 18; TEMP 36.3; O2SAT 99
[2023-02-06] MEDS: oxyCODONE HCl Immed Release 5 MG TABLET 10 MG PO ×2 (07:54→15:02)
--- NOTE | 2023-02-06 08:32 | W.PM.OPN ---
Operative Note Operative Note Date of Service: 02/05/23 Narrative: Date of Service: 02/05/23 Pre-op diagnosis: tibial plafond fracture left Post-op diagnosis: same Procedure: External fixation left tibia Implants: none Surgeon: Tomy Villalobos MD Anesthesia: GETA and local Was an Electrical Engineering Director used for this Procedure?: Yes Electrical Engineering Director: Crystal Macedo Estimated blood loss (mL): 20 IV fluids (mL): 600 Pathology: none sent Condition: stable Disposition: PACU Indications: This is a 37 yo with an impacted tibial plafond fracture with swellign and blistering. He was consented to undergo operative fixation. Temporary external fixation was indicated to allow for soft tissue swelling to decrease and to bring the ankle out to length. Patient was brought to the operating room and placed supine on the surgical table. He was prepped and draped in standard sterile fashion and a time out was called to identify proper site, proper procedure and IV antibiotics per weight were administered. I began by placing 2 dhort 5.0 Schanz pis through the proximal tibial shaft, ~ 5 cm distal the the tubercle. Fluoro was used to confirm placement of the two pins. I then placed a long 5.0 Schanz pin through the calcaneus from medial to lateral ~ 1.5 cm from posterior and 1.5 proximal to plantar aspect. Again flouro was used to confirm position. I then applied traction to the ankle and secured the traction with 2 rods in a triangular fashion. I was satisfied with alignment of the fracture and the position of the external fixation. An additional supportive latoya was placed between the two rods over anterior tibia and a kickstand was added. The pin sites were covered with xeroform as was the posterolateral blistering. This was then covered with kerlex and local was injected. Patient was extubated and brought to the recovery room in stable condition. There were no known complications.
[2023-02-06] MEDS: Celecoxib 200 MG CAPSULE PO ×2 (08:43→20:35)
[2023-02-06] MEDS: Docusate Sodium 100 MG CAPSULE PO ×2 (08:43→20:36)
[2023-02-06] MEDS: oxyCODONE HCl ER 10 MG TAB.ER.12H PO ×2 (08:43→20:36)
[2023-02-06 09:03] VITALS: BP 142/93; PULSE 68; O2SAT 99
[2023-02-06] MEDS: HYDROmorphone HCl 0.5 MG/0.5 ML SYRINGE IVPUSH ×2 (10:50→15:02)
[2023-02-06] MEDS: ondansetron HCL 4 MG/2 ML VIAL IVPUSH ×2 (11:05→17:23)
[2023-02-06 11:46] VITALS: O2SAT 96
--- NOTE | 2023-02-06 13:49 | MHC.CM.PN ---
Addendum entered by Michelle Guardado 02/06/23 16:09: Additional Home care agencies have been referred. [facility] does not have availability through the end of the week. Original Note: S/P external fixation device. Patient lives with Fiance. He is independent at baseline. He will receive assist with ADLs from . [facility] has been referred for home services. Patient will likely need assist with transport home via BLS.
--- NOTE | 2023-02-06 13:51 | HO.POSTANES ---
Post Anesthesia Evaluation Post Anesthesia Evaluation Date of Service: 02/06/23 Vital Signs: Vital Signs Temp Pulse Resp BP Pulse Ox O2 Del Method 02/06/23 11:46 96 Room Air 02/06/23 09:03 68 142/93 H 99 02/06/23 07:39 97.4 F 68 18 142/93 H 99 Room Air 02/06/23 03:30 98.5 F 55 18 116/73 96 Room Air Anesthesia: General Mental Status: Awake Pain Control: Satisfactory Nausea/Vomiting: None Hydration: Adequate Anesthesia-Related Issues: No Anes. Related Issues
[2023-02-06 15:02] VITALS: BP 117/74; PULSE 69; RESP 18; TEMP 36.2; O2SAT 97
--- NOTE | 2023-02-06 16:20 | MHC.RECOVRN ---
This literary writer met with patient after addiction consult was place, pt presented to the ED with LLE injury, loss of feeling in LLE. Pt resting in bed, easy to engage. Pt reports had been stable on BUP 4mg BID. Pt reports recent 7 day recurrence, 1 bundle IV daily LEAD PRODUCER. Pt reports occasional SHIN use IV. Pt reports no other substances. Pt reports has tried MAT in the past, MTD, pt states had been doing well on BUP. Pt reports goal of transitioning to Sublocade, as had success in the past on Sublocade. Pt states has recovery supports, accesses AA. Pt reports intermittent recurrences with 7 years of Recovery. Pt states declined BUP film today, concerned for precipiated withdrawal due to fentanyl use. Pt is interested in getting back on BUP while hospitalized. Pt currently diaphoretic, reporting increased nausea, difficulty eating/drinking due to nausea. Reviewed findings with Provider Jaclny Reyes.
[2023-02-06] MEDS: 0.9 % Sodium Chloride Flush 3 ML SYRINGE IVFLUSH ×2 (17:23→20:36)
[2023-02-06] MEDS: clonazePAM 1 MG TABLET PO (17:23)
[2023-02-06 19:34] VITALS: BP 119/70; PULSE 76; RESP 16; TEMP 36.9; O2SAT 95
[2023-02-06] MEDS: traZODone HCL 50 MG TABLET PO (20:36)
[2023-02-07 03:31] VITALS: BP 132/77; PULSE 51; RESP 16; TEMP 36; O2SAT 96
[2023-02-07] MEDS: oxyCODONE HCl Immed Release 5 MG TABLET 10 MG PO ×2 (03:51→12:33)
[2023-02-07 06:30] LABS: MANUAL DIFF FLAG NO
[2023-02-07 06:36] LABS: Basophils Percent Auto 0.5 % (0-2); Eosinophils Absolute Auto 0.1 X10*3/uL (0.0-0.4); Hematocrit 33.5 % (42.0-52.0); Hemoglobin 11.2 g/dl (14.0-18.0); Imm Gran Abs Auto 0.03 X10*3/uL (0.00-0.03); Imm Gran Pct Auto 0.3 % (0.0-0.4); Lymphocytes Absolute Auto 2.7 X10*3/uL (1.2-4.9); Lymphocytes Percent Auto 31.5 % (20-40); Mean Corpuscular HGB Conc 33.4 g/dl (31.0-36.0); Mean Corpuscular Hemoglobin 29.2 pg (27.0-33.0); Mean Corpuscular Volume 87.5 fL (80.0-98.0); Mean Platelet Volume 10.4 fL (9.4-12.4); Monocytes Absolute Auto 0.6 X10*3/uL (0.1-1.2); Monocytes Percent Auto 7.4 % (2-11); Neutrophils Absolute Auto 5.2 x10*3/uL (2.0-8.3); Neutrophils Percent Auto 59.3 % (45-73); Platelet Count 258 X10*3/uL (160-400); Red Blood Count 3.83 X10*6/uL (4.60-5.80); Red Cell Distribution Width 13.2 % (11.0-16.0); White Blood Count 8.7 X10*3/uL (4.8-10.8)
[2023-02-07 06:49] LABS: Anion Gap 10 (12-20); Blood Urea Nitrogen 9 mg/dL (9-16); Calcium 9.2 mg/dL (8.4-10.2); Carbon Dioxide 30 mmol/L (22-29); Chloride 108 mmol/L (96-108); Creatinine Clr Calc Pharmacy 111.6; Estimated Glomerular Filt Rate > 60; Glucose Fasting 97 mg/dL (60-99); Potassium 3.4 mmol/L (3.3-5.1); Sodium 145 mmol/L (135-145)
[2023-02-07 07:40] VITALS: BP 129/79; PULSE 66; RESP 16; TEMP 36.4
--- NOTE | 2023-02-07 08:34 | PM.PNORT ---
Subjective Subjective Date of Service: 02/07/23 Principal diagnosis: left pilon fracture s/p temporary ex fix Interval history: pain controlled Physical Exam Vital Signs: Vital Signs: Last Vital Signs Temp 97.6 F 02/07/23 07:40 Pulse 66 02/07/23 07:40 Resp 16 02/07/23 07:40 BP 129/79 02/07/23 07:40 Pulse Ox 96 02/07/23 03:31 O2 Del Method Room Air 02/07/23 03:31 O2 Flow Rate 2 02/05/23 16:15 BMI result Body Mass Index 28.3 Extrem: Other: pin sites clean firing ehl/ta/gc SILT Toes wwp Procedures Date of Service Date of Service: 02/07/23 Progress Note: A&P Assessment and plan (1) Closed pilon fracture of tibia: Status: Acute Assessment and Plan: POD#2 s/p ex fix for pilon fracture DVT prophylaxis PT- NWB LLE Home suboxone Home tomorrow Time Spent With Patient Time: Total time managing care of this patient today __10__ minutes. Quality Stroke Does the patient have a stroke diagnosis?: No VTE Prior VTE?: No VTE Risk Level:: Medical - moderate - high VTE Device Contraindication: N/A - Device Ordered VTE Drug Contraindication: N/A - Med Ordered
[2023-02-07] MEDS: 0.9 % Sodium Chloride Flush 3 ML SYRINGE IVFLUSH ×3 (09:03→19:50)
[2023-02-07] MEDS: Celecoxib 200 MG CAPSULE PO ×2 (09:03→21:00)
[2023-02-07] MEDS: Docusate Sodium 100 MG CAPSULE PO ×2 (09:04→21:00)
[2023-02-07] MEDS: ondansetron HCL 4 MG/2 ML VIAL IVPUSH (09:04)
[2023-02-07] MEDS: oxyCODONE HCl ER 10 MG TAB.ER.12H PO ×2 (09:08→21:00)
[2023-02-07 11:00] VITALS: O2SAT 98
[2023-02-07] MEDS: Enoxaparin Sodium 40 MG/0.4 ML SYRINGE SUBCUT (12:32)
--- NOTE | 2023-02-07 12:35 | P.PNADD_ITS ---
Subjective Subjective Date of Service: 02/07/23 Reason For Visit: Left tibial pilon fracture Interim History: Patient seen in follow up. Previously seen by buzzle buffer on 02/06. Today, patient awake, alert, engaged in interview. Per chart review patient with OUD and engaged in treatment with MOUD (Suboxone). Declining Suboxone upon admission to [facility] as he had recently been using opioids and did not want to precipitate withdrawal. Discussed discharge plan in regards to restarting suboxone, as he will require pain medication for some time Patient reports he will be in contact with his [facility] provider and will make a plan with him to transition back to suboxone when appropriate. He reports his GF is going to see the same provider today and will be making him aware of patient's surgery. Denies any withdrawal sx., however was experiencing stomach discomfort when seen by this science writer--he was unsure what it was related to. At this time plan is for discharge tomorrow Review of Systems Constitutional: Reports as per HPI Mental Status Exam Mental Status Exam Patient Appearance: Appropriate (sitting up in bed, left leg slightly elevated with external device in place ) Affect Description: Calm Thought Process: Intact Thought Content: positive for Intact Diagnostics Vital Signs (24Hr): Vital Signs - 24 hr 02/06/23 15:02 02/06/23 19:34 02/07/23 03:31 Temperature 97.1 F 98.4 F 96.8 F Pulse Rate 69 76 51 Respiratory Rate 18 16 16 Blood Pressure 117/74 119/70 132/77 Pulse Oximetry 97 95 96 Oxygen Delivery Method Room Air Room Air Room Air 02/07/23 07:40 02/07/23 11:00 Temperature 97.6 F Pulse Rate 66 Respiratory Rate 16 Blood Pressure 129/79 Pulse Oximetry 98 Oxygen Delivery Method Room Air BMI result Body Mass Index 28.3 Labs 02/07/23 05:38 02/07/23 05:38 Labs: Laboratory Results - last 48 hr 02/06/23 02/06/23 02/07/23 05:27 05:27 05:38 WBC 11.9 H 8.7 RBC 4.27 L 3.83 L Hgb 12.3 L 11.2 L Hct 36.7 L 33.5 L MCV 85.9 87.5 MCH 28.8 29.2 MCHC 33.5 33.4 RDW 12.6 13.2 Plt Count 261 D 258 MPV 10.3 10.4 Immature Gran % (Auto) 0.5 H 0.3 Neut % (Auto) 83.8 H 59.3 Lymph % (Auto) 10.2 L 31.5 [place] % (Auto) 5.4 7.4 Eos % (Auto) 0.0 1.0 Baso % (Auto) 0.1 0.5 Lymph # (Auto) 1.2 2.7 [place] # (Auto) 0.7 0.6 Eos # (Auto) 0.0 0.1 Baso # (Auto) 0.0 0.0 Abs Immat Gran (auto) 0.06 H 0.03 Absolute Neuts (auto) 10.0 H 5.2 Absolute Nucleated RBC 0.000 0.000 Nucleated RBC % (auto) 0.0 0.0 Sodium 141 Potassium 3.9 Chloride 107 Carbon Dioxide 28 Anion Gap 10 L BUN 9 Creatinine 0.68 Estim Creat Clear Calc 128.0 Estimated GFR > 60 Fasting Glucose 134 H Calcium 9.3 02/07/23 05:38 WBC RBC Hgb Hct MCV MCH MCHC RDW Plt Count MPV Immature Gran % (Auto) Neut % (Auto) Lymph % (Auto) [place] % (Auto) Eos % (Auto) Baso % (Auto) Lymph # (Auto) [place] # (Auto) Eos # (Auto) Baso # (Auto) Abs Immat Gran (auto) Absolute Neuts (auto) Absolute Nucleated RBC Nucleated RBC % (auto) Sodium 145 Potassium 3.4 Chloride 108 Carbon Dioxide 30 H Anion Gap 10 L BUN 9 Creatinine 0.78 Estim Creat Clear Calc 111.6 Estimated GFR > 60 Fasting Glucose 97 Calcium 9.2 Imaging Radiology Impressions: ITS Impressions Foot X-Ray 02/04/23 03:52 IMPRESSION: Pilon fracture as described. Tibia/Fibula X-Ray 02/04/23 03:52 IMPRESSION: Pilon fracture as described. Lower Extremity CT 02/04/23 05:55 IMPRESSION: * Extensively comminuted intra-articular fracture of the tibial plafond as described. * Tiny avulsion fracture involving the posteromedial cortex of the distal fibula. * Nondisplaced transversely oriented fracture through the inferior talus involving the posterior subtalar joint. Guidance Fluoroscopy 02/05/23 14:32 IMPRESSION: Fluoroscopic guidance provided for external fixation of the left tibia and fibula. Fluoroscopy Time: 0.2. Cumulative Dose: 0.985 mGy. DAP: 0.0171 Gycm2. Images: 8. FINDINGS/IMPRESSION: Final images show an external fixation device in place with overall good anatomic alignment. Please refer to the operative report for more detailed findings. Medications Medications Current Medications Buprenorphine/Naloxone (Buprenorphine/Naloxone 8/2 Mg Film) 1 film SUBLINGUAL BID [facility] Last Admin: 02/07/23 08:56 Dose: Not Given Celecoxib (Celecoxib 200 Mg Capsule) 200 mg PO BID [facility] Last Admin: 02/07/23 09:03 Dose: 200 mg Clonazepam (Clonazepam 1 Mg Tablet) 1 mg PO TID PRN PRN Reason: Anxiety Last Admin: 02/06/23 17:23 Dose: 1 mg Clonidine HCl (Clonidine Hcl 0.1 Mg Tablet) 0.1 mg PO Q4H PRN; Protocol PRN Reason: Anxiety Docusate Sodium (Docusate Sodium 100 Mg Capsule) 100 mg PO BID [facility] Last Admin: 02/07/23 09:04 Dose: 100 mg Enoxaparin Sodium (Enoxaparin Sodium 40 Mg/0.4 Ml Syringe) 40 mg SUBCUT Q24H [facility] Hydromorphone HCl (Hydromorphone Hcl 0.5 Mg/0.5 Ml Syringe) 0.5 mg IVPUSH Q3H PRN; Protocol PRN Reason: Pain, Severe (Pain Scale 7-10) Last Admin: 02/06/23 15:02 Dose: 0.5 mg Hydroxyzine HCl (Hydroxyzine Hcl 50 Mg Tablet) 50 mg PO Q6H PRN PRN Reason: Anxiety Ondansetron HCl (Ondansetron Hcl 4 Mg/2 Ml Vial) 4 mg IVPUSH Q8H PRN PRN Reason: Nausea and Vomiting Last Admin: 02/07/23 09:04 Dose: 4 mg Oxycodone HCl (Oxycodone Hcl Er 10 Mg Tab.Er.12h) 10 mg PO BID [facility] Last Admin: 02/07/23 09:08 Dose: 10 mg Oxycodone HCl (Oxycodone Hcl Immed Release 5 Mg Tablet) 10 mg PO Q4H PRN PRN Reason: Pain, Moderate(Pain Scale 4-6) Last Admin: 02/07/23 03:51 Dose: 10 mg Sodium Chloride (0.9 % Sodium Chloride Flush 3 Ml Syringe) 3 ml IVFLUSH QSHIFT [facility] Last Admin: 02/07/23 09:03 Dose: 3 ml Trazodone HCl (Trazodone Hcl 50 Mg Tablet) 50 mg PO BEDTIME [facility] Last Admin: 02/06/23 20:36 Dose: 50 mg Allergies Allergies Allergy/AdvReac Type Severity Reaction Status Date / Time Penicillins Allergy Hives Verified 02/04/23 03:31 Assessment & Plan Assessment & Plan (1) Opioid use disorder: Status: Acute Code(s): F11.90 - Opioid use, unspecified, uncomplicated Assessment and Plan: * continue to hold suboxone per patient request * take home narcan to be ordered for patient to bring home at time of discharge * patient will discuss transition plan to restart buprenorphine with outpatient provider Total time managing care of this patient today _20___ minutes.
[2023-02-07] MEDS: hydrOXYzine HCL 50 MG TABLET PO (12:37)
[2023-02-07 13:31] VITALS: BP 127/71; PULSE 63; RESP 18; TEMP 36.1; O2SAT 98
[2023-02-07 16:00] VITALS: BP 119/63; PULSE 65; RESP 16; TEMP 36.3; O2SAT 95
[2023-02-07 19:35] VITALS: BP 120/68; PULSE 63; RESP 16; TEMP 36.2; O2SAT 96
[2023-02-07] MEDS: HYDROmorphone HCl 0.5 MG/0.5 ML SYRINGE IVPUSH (19:50)
[2023-02-07] MEDS: traZODone HCL 50 MG TABLET PO (21:00)
[2023-02-08 03:52] VITALS: BP 133/82; PULSE 63; RESP 18; TEMP 36.6; O2SAT 99
[2023-02-08 05:33] LABS: MANUAL DIFF FLAG NO
[2023-02-08 06:52] LABS: Anion Gap 10 (12-20); Blood Urea Nitrogen 10 mg/dL (9-16); Calcium 9.1 mg/dL (8.4-10.2); Carbon Dioxide 29 mmol/L (22-29); Chloride 108 mmol/L (96-108); Creatinine Clr Calc Pharmacy 122.6; Estimated Glomerular Filt Rate > 60; Glucose Fasting 78 mg/dL (60-99); Potassium 3.5 mmol/L (3.3-5.1); Sodium 143 mmol/L (135-145)
[2023-02-08 07:14] LABS: Basophils Absolute Auto 0.1 X10*3/uL (0.0-0.2); Basophils Percent Auto 0.6 % (0-2); Eosinophils Absolute Auto 0.1 X10*3/uL (0.0-0.4); Eosinophils Percent Auto 1.3 % (0-4); Hematocrit 34.2 % (42.0-52.0); Hemoglobin 11.2 g/dl (14.0-18.0); Imm Gran Abs Auto 0.03 X10*3/uL (0.00-0.03); Imm Gran Pct Auto 0.4 % (0.0-0.4); Lymphocytes Absolute Auto 2.7 X10*3/uL (1.2-4.9); Lymphocytes Percent Auto 32.8 % (20-40); Mean Corpuscular HGB Conc 32.7 g/dl (31.0-36.0); Mean Corpuscular Hemoglobin 28.7 pg (27.0-33.0); Mean Corpuscular Volume 87.7 fL (80.0-98.0); Mean Platelet Volume 10.5 fL (9.4-12.4); Monocytes Percent Auto 11.7 % (2-11); Neutrophils Absolute Auto 4.4 x10*3/uL (2.0-8.3); Neutrophils Percent Auto 53.2 % (45-73); Platelet Count 259 X10*3/uL (160-400); Red Cell Distribution Width 13.2 % (11.0-16.0); White Blood Count 8.4 X10*3/uL (4.8-10.8)
[2023-02-08 08:00] VITALS: BP 140/94; PULSE 67; RESP 17; TEMP 36.7; O2SAT 98
--- NOTE | 2023-02-08 08:36 | PC.NURSE ---
Physical therapy brought to this Nurse and charge Nurse attention that she found 3 pills on patient's bed. Further investigation revealed that those 3 pills were Gabapentin, and pt. agreed they were Gabapentin. Room search performed with security and no more substances were found, Pills were given to security for disposition.
--- NOTE | 2023-02-08 08:58 | PC.NURSE ---
pt. stated the last time he self medicate with Gabapentin was just prior to admission.
[2023-02-08] MEDS: Celecoxib 200 MG CAPSULE PO (09:27)
[2023-02-08] MEDS: oxyCODONE HCl ER 10 MG TAB.ER.12H PO (09:27)
[2023-02-08] MEDS: 0.9 % Sodium Chloride Flush 3 ML SYRINGE IVFLUSH (09:27)
[2023-02-08] MEDS: Docusate Sodium 100 MG CAPSULE PO (09:28)
--- NOTE | 2023-02-08 09:58 | P.F2F_ITS ---
Service Date Service Date: 02/08/23 Encounter Date of encounter: 02/08/23 Reasons for Services Signs and symptoms assessed: s/p left tibia external fixation. Pt. is considered homebound due to recent surgery. Unable to drive, poor balance, poor gait mechanics. Reason for assisted: wound care and postoperative assessment and/or care Reason for physical therapy: home safety and mobility, therapeutic exercises, restore joint function, gait/transfer training, assess need for DME and ADL training Homebound: Leaving the home is medically contraindicated at this time without the asist of a device and/or another person due th the listed conditions above and below. Reason homebound: unsteady gait / fall risk, leg weakness, pain with ambulation, pain with transfers, poor balance / fall risk, non-weight bearing and unable to drive Certification: Based on the above findings, I certify that this patient is confined to the home and needs intermittent assisted care, physical therapy and/or speech therapy, or continues to need occupational therapy. The patient is under my care, and I have initiated the establishment of the plan of care. The patient will be followed by a physician who will periodically review the plan of care. Time Spent With Patient Time: Total time managing care of this patient today ____ minutes.
--- NOTE | 2023-02-08 10:31 | P.DS_ITS ---
DS: Providers Provider Date of Service: 02/08/23 Date of admission: 02/04/23 07:23 Primary care physician: None Physician Consults: 02/04/23 07:23 Consult to Hospitalist Routine Comment: Consulting Provider: Hospitalist Reason For Exam: routine medical management - monitor for withdrawl 02/05/23 15:08 Consult to Care Team Routine Comment: Reason for consultation: h/o substance use , on suboxone DS: Diagnosis Discharge Diagnosis (1) Closed pilon fracture of tibia: Status: Acute DS: Summary Hospital Course Hospital Course: The patient underwent a successful Left ankle external fixation, was transferred to PACU and then to the floor to recover. During their stay, their vitals were stable, afebrile at 98.1 . Labs were unremarkable, H/H 11.2/34.2. POD 1 he was started on Lovenox for DVT ppx, they also received Physical Therapy services twice a day. Physical therapy should include gait training-he is NWB LLE. Prior to discharge, dressing was clean dry and intact. The dressing should remain intact and dry at all times. Any concerns with the dressing, please contact orthopedic office. No showering. The plan is to be discharged home with VNA services. Time Spent with Patient Time attestation: Total time managing care of this patient today ____ minutes. Discharge coordination time: Less than 30 minutes Quality: Safe Use of Opioids Does Pt have an Active Cancer Diagnosis on the Problem List?: No Quality: Stroke Does the patient have a stroke diagnosis?: No Physical Exam Vital Signs: Vital Signs: Last Vital Signs Temp 98.1 F 02/08/23 08:00 Pulse 67 02/08/23 08:00 Resp 17 02/08/23 08:00 BP 140/94 H 02/08/23 08:00 Pulse Ox 98 02/08/23 08:00 O2 Del Method Room Air 02/08/23 08:00 O2 Flow Rate 2 02/05/23 16:15 BMI result Body Mass Index 28.3 Extrem: Other: pin sites clean firing ehl/ta/gc SILT Toes wwp DS: Data Data Completed and Pending Labs on day of discharge: Laboratory Results - last 24 hr 02/08/23 02/08/23 05:21 05:39 WBC 8.4 RBC 3.90 L Hgb 11.2 L Hct 34.2 L MCV 87.7 MCH 28.7 MCHC 32.7 RDW 13.2 Plt Count 259 MPV 10.5 Immature Gran % (Auto) 0.4 Neut % (Auto) 53.2 Lymph % (Auto) 32.8 [place] % (Auto) 11.7 H Eos % (Auto) 1.3 Baso % (Auto) 0.6 Lymph # (Auto) 2.7 [place] # (Auto) 1.0 Eos # (Auto) 0.1 Baso # (Auto) 0.1 Abs Immat Gran (auto) 0.03 Absolute Neuts (auto) 4.4 Absolute Nucleated RBC 0.000 Nucleated RBC % (auto) 0.0 Sodium 143 Potassium 3.5 Chloride 108 Carbon Dioxide 29 Anion Gap 10 L BUN 10 Creatinine 0.71 Estim Creat Clear Calc 122.6 Estimated GFR > 60 Fasting Glucose 78 Calcium 9.1 Discharge Plan Discharge Anticipated Discharge Date/Time: 02/12/23 18:41 Patient Disposition: Home Health Service Discharge Diagnosis: s/p left tibia external fixator Referrals: Crystal Macedo PA-C [Physician Registered Clinical Dietitian] - 1 Week (02/14/23 1:30 [facility] [place] Orthopedic Surgeons Crystal Macedo PA-C) Discharge Medications: New docusate sodium 100 mg Capsule 100 mg PO BID 14 Days Qty: 28 0RF enoxaparin 40 mg/0.4 mL Syringe 40 mg subcut Q24H 42 Days Qty: 16.8 0RF oxycodone 10 mg tablet 10 mg PO Q4H PRN (Reason: Pain, Moderate(Pain Scale 4-6)) 7 Days Qty: 42 0RF Rx Instructions: Partial Fill upon patient request. celecoxib 200 mg Capsule 200 mg PO BID 30 Days Qty: 60 0RF Continued clonidine HCl 0.1 mg tablet 0.1 mg PO Q4-6H PRN (Reason: Anxiety) trazodone 50 mg tablet 50 - 100 mg PO BEDTIME clonazepam 1 mg tablet 1 mg PO TID PRN (Reason: Anxiety) hydroxyzine HCl 50 mg tablet 50 mg PO Q6-8H PRN (Reason: Anxiety) ibuprofen 600 mg tablet 600 mg PO Q6H PRN (Reason: Pain) buprenorphine-naloxone [Suboxone] 8-2 mg film 1 film sublingual BID Sublocade 300 mg/1.5 mL solution, extended rel syringe 300 mg subcut Q OTHER DAY Discharge Orders: Discharge Order (Routine); Ordered 02/08/23 Ordered By: Crystal Macedo Diet: Regular diet Activity on Discharge: Walk with crutches Stand Alone Forms: Patient Portal Discharge page Care Plan Goals: Restore fxn to LLE Health Concerns: None Plan of Treatment: * NWB x6 weeks * elevate above heart level to reduce swelling * No tub bath or shower-Keep dressings and pin sites clean, dry and intact to reduce risk of infection * Follow up with orthopedics in 1 week Assessment: Stable for discharge
[2023-02-08 11:00] VITALS: O2SAT 98
[2023-02-08] MEDS: clonazePAM 1 MG TABLET PO (12:18)
[2023-02-08] MEDS: Enoxaparin Sodium 40 MG/0.4 ML SYRINGE SUBCUT (12:18)
--- NOTE | 2023-02-08 12:46 | MHC.CM.PN ---
Addendum entered by Michelle Guardado 02/08/23 14:55: IR unable to insert Mon[facility]. [facility] and [facility] have been notified. [facility] can not start services until Saturday. Spoke with patients . She was notified of a delay in [facility] SOC. She stated that once the line is inserted. They are competent to manage home infusion until [facility] SOC. The patient has received IV ABX home infusion several times since 2018. [facility] was informed that patient/ can manage home infusion until [facility] SOC. Original Note: Patient is discharged today to home. NA will start SN services within 48hrs. BLS transport is booked for 4pm [employer] @ [facility].
[2023-02-08 15:04] VITALS: BP 155/96; PULSE 72; RESP 18; TEMP 36.8; O2SAT 98
== END 2023-02-08 16:50 | disposition home health service (06) | DRG 313 ==
LOC: HO.ED 07:11 → HO.EDOVER 07:29 → HO.S3 02-05 17:09
PROVIDERS: Orthopaedic Surgery; Admitting Provider Physician Assistant; Emergency Provider Student in an Organized Health Care Education/Training Program; Visit Provider Physician Assistant
PROC: 0QSH35Z Reposition Left Tibia with External Fixation Device, Percutaneous Approach (ICD-10-PCS; principal; 2023-02-05 14:00)
DX: S82.872A Displaced pilon fracture of left tibia, initial encounter for closed fracture (principal); F11.20 Opioid dependence, uncomplicated; W11.XXXA Fall on and from ladder, initial encounter; F17.210 Nicotine dependence, cigarettes, uncomplicated; Z71.6 Tobacco abuse counseling; Z20.822 Contact with and (suspected) exposure to COVID-19; Z79.899 Other long term (current) drug therapy
CPT/HCPCS: 36415; 73590; 73630; 73701; 80048; 80053; 80307; 81003; 85025; 85610; 86850; 86900; 86901; 87635; 97116; 97162; 97166; 97535; 99285; C1713; J0131; J0690; J1100; J1170; J1650; J1885; J2405; J2795; J3010; Q9967

== ENCOUNTER → 2023-02-04 07:23 | Outpatient (BNV) | payer OTHER, SELFPAY | PROVIDERS: Admitting Provider Physician Assistant; Emergency Provider Student in an Organized Health Care Education/Training Program; Visit Provider Internal Medicine | DX: S82.873A Displaced pilon fracture of unspecified tibia, initial encounter for closed fracture (principal) | CPT/HCPCS: 99222 ==

== ENCOUNTER → 2023-02-04 07:23 | Outpatient (BNV) | payer OTHER, SELFPAY | PROVIDERS: Admitting Provider Physician Assistant; Emergency Provider Student in an Organized Health Care Education/Training Program; Visit Provider Nurse Practitioner Psychiatric/Mental Health | DX: F11.20 Opioid dependence, uncomplicated (principal) | CPT/HCPCS: 99231 ==

== ENCOUNTER → 2023-02-04 07:23 | Outpatient (BNV) | payer OTHER, SELFPAY | PROVIDERS: Admitting Provider Physician Assistant; Emergency Provider Student in an Organized Health Care Education/Training Program; Visit Provider Physician Assistant | DX: S82.872A Displaced pilon fracture of left tibia, initial encounter for closed fracture (principal) | CPT/HCPCS: 20692; 27752; 99024; 99231; G0180 ==

== ENCOUNTER 2023-02-18 13:39 | Outpatient (AMB) | payer OTHER, SELFPAY ==
--- NOTE | 2023-02-18 13:40 | MHC.OFFVIS ---
Intake Intake Visit Reasons: PO-External fixation lt tibia 02/05/23 NE Intake Note: Nakul is a 37 year old male who presents today for a post operative appointment s/p Left Tibia External Fixation 02/05/23. Patient reports that he is doing well with no major concers. He reports that he is having increased pain in the foot while its down . Allergies Penicillins Allergy (Verified 02/04/23 03:31) Hives HPI PO-External fixation lt tibia 02/05/23 NE HPI Details Nakul is a 37 year old man who presents ~2 weeks S/P left tibia external fixation. He says he is doing well with no major concerns overall. He does complain of some increased foot pain when it hangs down. He is currently on Sublocade injections & Oxycodone at this time. He will transition back to Suboxone at a later date. [facility] Medical History (Updated 02/21/23 @ 15:22 by Jaclyn Reyes CNP) Avulsion fracture of distal fibula Fracture of talus Hepatitis C Opioid use disorder Social History Household Members: None Housing: House Do you presently have visiting nurse or other home services: No Unable to assess alcohol history related to: Unable to respond Patient Tobacco Use Status: Current everyday Tobacco user Tobacco use type: Cigarette Cigarette Packs Per Day: 0.5 Cigarettes Per Day: 10 Years Smoked: 17 Second Hand Smoke Exposure: Yes Substance Use Type: IV Drugs service: No Review of Systems Const All systems reviewed & are unremarkable except as noted in HPI and below Physical Exam Const General: no acute distress, alert and awake Orientation/consciousness: patient oriented x3 HEENT Head: Yes normocephalic and Yes atraumatic Eyes EOM: EOMs intact bilaterally Resp Effort & Inspection: normal respiratory effort and able to speak in complete sentences Cardio Jugular venous distension: no JVD Skin General skin exam: turgor normal Rashes: no rashes Neuro General: patient oriented x3 Extrem Other: Left Knee: Psych Appearance: grossly normal Affect: normal affect Attitude: cooperative Results Reviewed Results Reviewed: I personally reviewed relevant radiographs. Assessment & Plan Assessment & Plan (1) Closed pilon fracture of tibia: Code(s): S82.873A - Displaced pilon fracture of unspecified tibia, initial encounter for closed fracture Plan: This is a 37 year old man with a left closed pilon tibia fracture, S/P left tibia external fixation, DOS: 02/05/23. He says he is doing well and denies any major pain, though he has some discomfort when letting his foot hang down. His effusion has mostly resolved at this time. I recommend an ankle ORIF conversion. I discussed the risks, benefits, and alternatives including, but not limited to, the risk of pain, infection, stiffness, need for further surgery as well as potential medical complications such as blood clots, pulmonary embolism and cardiac complications. I discussed the recovery timeline and process as well as the importance of PT. Nakul is a good candidate for this surgery, and he wishes to proceed with this decision. He will speak with Christy to schedule this procedure for sometime on 02/20/23. Plan Scribed for Tomy Villalobos MD by Jermain Alvarez, medical claims representative, on 02/18/23 at 1:50 PM, EST. Coding Level of Care Code Est Pt Level 4 (12123) Global (02195) Diagnoses Closed pilon fracture of tibia S82.873A
== END 2023-02-18 14:30 | disposition home or self-care (01) ==
PROVIDERS: Visit Provider Orthopaedic Surgery
DX: S82.873A Displaced pilon fracture of unspecified tibia, initial encounter for closed fracture (principal)
CPT/HCPCS: 99024

== ENCOUNTER → 2023-02-18 13:39 | Outpatient (BNVA) | payer OTHER, SELFPAY | PROVIDERS: Visit Provider Orthopaedic Surgery ==

== ENCOUNTER 2023-02-20 12:12 | Inpatient (IN) | payer OTHER, SELFPAY ==
--- NOTE | ~2023-02-20 | FL_ITS ---
EXAMINATION: XR FLUOROSCOPY WITH IMAGES CLINICAL INFORMATION: Left tibial plafond fracture COMPARISON: CT of 02/04/2023 TECHNIQUE: Fluoroscopy Supervised By: . Fluoroscopy Time: 1.0. Cumulative Dose: 7.43 mGy. DAP: 0.129 Gycm2. Images: 5. FINDINGS: 5 fluoroscopic images show surgical transfixation of the distal tibia with a side plate and multiple screws, restoring the ankle to approximate anatomic alignment and position. FL/FL guidance in OR IMPRESSION: Fluoroscopy guidance for surgical transfixation of the distal tibia with zoroastrian of the tibial plafond.
--- NOTE | 2023-02-20 11:45 | ECG_ITS ---
Test Reason : preop Blood Pressure : / mmHG Vent. Rate : 070 BPM Atrial Rate : 070 BPM P-R Int : 160 ms QRS Dur : 088 ms QT Int : 420 ms P-R-T Axes : 030 006 007 degrees QTc Int : 453 ms Normal sinus rhythm Normal ECG No previous ECGs available Referred By: Camila Booth Electronically Signed By:GAURAV LARSEN
[2023-02-20 12:27] VITALS: BMI 28.3
--- NOTE | 2023-02-20 12:37 | PC.NURSE ---
called for ekg
[2023-02-20] MEDS: Lactated Ringers 1,000 ML 100 ML IVCONT ×3 (12:56→18:53)
--- NOTE | 2023-02-20 12:58 | PC.NURSE ---
EKG PERFORMED. PATIENT N LONGER NEEDS A KEEN SCREENING PER MD VILLARREAL.
[2023-02-20 12:59] VITALS: BP 102/62; PULSE 70; RESP 16; TEMP 36.7; O2SAT 95
--- NOTE | 2023-02-20 17:29 | P.BOP_ITS ---
Brief Operative Note Date of Service: 02/20/23 Pre-op diagnosis: left tibial plafond fracture Post-op diagnosis: same Procedure: ORIF left tibial plafond Implants: [place] distal tibial locking plate Surgeon: Tomy Villalobos MD Anesthesia: GETA and regional Was an Emery Wheel Molder used for this Procedure?: Yes Emery Wheel Molder: Namita Orosco Estimated blood loss (mL): 150 Tourniquet time (min): 120 IV fluids (mL): 1,500 Pathology: none sent Condition: stable Disposition: PACU
[2023-02-20 17:35] VITALS: BP 116/70; PULSE 74; RESP 16; TEMP 36.3; O2SAT 96
[2023-02-20 17:40] VITALS: BP 113/76; PULSE 69; RESP 16; O2SAT 98
[2023-02-20 17:45] VITALS: BP 116/77; PULSE 61; RESP 18; O2SAT 98
[2023-02-20 17:49] VITALS: BP 118/70; PULSE 68; RESP 18; TEMP 36.3; O2SAT 98
--- NOTE | 2023-02-20 18:38 | PHA.MEDREC ---
Pharmacy Consult ? Medication Reconciliation Pharmacy has reviewed the medication reconciliation completed by nursing. Patient currently not using suboxone or subolcade. Suboxone was removed from med rec. VARUN Breaux was informed. Kaylen Gomez, AfricaD
--- NOTE | 2023-02-20 18:51 | PC.NURSE ---
Pt voided 600 ml in urinal at 18:50
[2023-02-20 19:30] VITALS: BP 112/61; PULSE 61; RESP 18; TEMP 36.2; O2SAT 97
[2023-02-20] MEDS: Docusate Sodium 100 MG CAPSULE PO (20:45)
[2023-02-20] MEDS: Celecoxib 200 MG CAPSULE PO (20:45)
[2023-02-20] MEDS: oxyCODONE HCl ER 10 MG TAB.ER.12H PO (20:46)
[2023-02-21] MEDS: Clindamycin Phosphate/D5W 900 MG/50 ML PIGGYBACK 50 MG IV (01:20)
[2023-02-21 04:00] VITALS: BP 95/51; PULSE 55; RESP 16; TEMP 37; O2SAT 95
[2023-02-21] MEDS: Lactated Ringers 1,000 ML 100 ML IVCONT ×3 (05:00→23:53)
[2023-02-21 06:07] LABS: MANUAL DIFF FLAG NO
[2023-02-21 06:21] LABS: Basophils Percent Auto 0.2 % (0-2); Hemoglobin 10.8 g/dl (14.0-18.0); Imm Gran Abs Auto 0.08 X10*3/uL (0.00-0.03); Imm Gran Pct Auto 0.5 % (0.0-0.4); Lymphocytes Percent Auto 6.9 % (20-40); Mean Corpuscular HGB Conc 32.7 g/dl (31.0-36.0); Mean Corpuscular Volume 88.7 fL (80.0-98.0); Mean Platelet Volume 10.3 fL (9.4-12.4); Monocytes Absolute Auto 0.8 X10*3/uL (0.1-1.2); Monocytes Percent Auto 5.6 % (2-11); Neutrophils Absolute Auto 12.7 x10*3/uL (2.0-8.3); Neutrophils Percent Auto 86.8 % (45-73); Platelet Count 341 X10*3/uL (160-400); Red Blood Count 3.72 X10*6/uL (4.60-5.80); Red Cell Distribution Width 13.1 % (11.0-16.0); White Blood Count 14.6 X10*3/uL (4.8-10.8)
[2023-02-21] MEDS: Acetaminophen 325 MG TABLET 650 MG PO (06:21)
[2023-02-21] MEDS: oxyCODONE HCl Immed Release 5 MG TABLET 10 MG PO ×2 (06:21→15:46)
[2023-02-21 06:29] LABS: Anion Gap 10 (12-20); Blood Urea Nitrogen 18 mg/dL (9-16); Calcium 9.5 mg/dL (8.4-10.2); Carbon Dioxide 25 mmol/L (22-29); Chloride 106 mmol/L (96-108); Creatinine Clr Calc Pharmacy 114.6; Estimated Glomerular Filt Rate > 60; Glucose Fasting 140 mg/dL (60-99); Potassium 3.9 mmol/L (3.3-5.1); Sodium 137 mmol/L (135-145)
[2023-02-21 07:36] VITALS: BP 126/67; PULSE 54; RESP 18; TEMP 36; O2SAT 97
--- NOTE | 2023-02-21 09:39 | PM.PNORT ---
Subjective Subjective Date of Service: 02/21/23 Interval history: POD1 s./p left tibia ORIF. Patient is resting comfortably in bed. No overnight events. Pain is managed. Block is still in effect. No additional complaints. Physical Exam Vital Signs: Vital Signs: Last Vital Signs Temp 96.8 F 02/21/23 07:36 Pulse 54 02/21/23 07:36 Resp 18 02/21/23 07:36 BP 126/67 02/21/23 07:36 Pulse Ox 97 02/21/23 07:36 O2 Del Method Room Air 02/21/23 07:36 BMI result Body Mass Index 28.3 Const: General: cooperative, healthy appearing and no acute distress Resp: Effort & Inspection: normal respiratory effort and able to speak in complete sentences Cardio: Rate: regular rate Peripheral pulses: Peripheral pulses 2+ throughout GI: Palpation (GI): Soft to palpation Skin: Lesions: no lesions Rashes: no rashes Extrem: Other: LLE posterior splint is c/d/i. Block still in effect. Procedures Date of Service Date of Service: 02/21/23 Progress Note: A&P Assessment and plan (1) Closed pilon fracture of tibia: Status: Acute Assessment and Plan: Continue pain mgmnt Keep splint c/d/i begin PT for LLE tibia ORIF -NWB reports burning while uriniation Medicine consult placed Addition medicine consult placed for pain management recs and saboxone recs Dispo planning-Pending PT eval, pain mgmnt (2) UTI (urinary tract infection): Status: Acute (3) Opioid use disorder: Status: Inactive Time Spent With Patient Time: Total time managing care of this patient today ____ minutes. Quality Stroke Does the patient have a stroke diagnosis?: No VTE Prior VTE?: No VTE Risk Level:: Medical - moderate - high VTE Device Contraindication: N/A - Device Ordered VTE Drug Contraindication: N/A - Med Ordered
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
[2023-02-21 09:53] VITALS: BP 126/67; PULSE 54; O2SAT 97
[2023-02-21] MEDS: 0.9 % Sodium Chloride Flush 3 ML SYRINGE IVFLUSH ×2 (09:57→14:37)
[2023-02-21] MEDS: Docusate Sodium 100 MG CAPSULE PO ×2 (09:57→20:42)
[2023-02-21] MEDS: oxyCODONE HCl ER 10 MG TAB.ER.12H PO ×2 (09:57→20:42)
[2023-02-21] MEDS: Celecoxib 200 MG CAPSULE PO ×2 (09:58→20:42)
[2023-02-21] MEDS: HYDROmorphone HCl 0.5 MG/0.5 ML SYRINGE 0.25 MG IVPUSH ×3 (09:58→18:19)
--- NOTE | 2023-02-21 10:01 | HO.POSTANES ---
Post Anesthesia Evaluation Post Anesthesia Evaluation Date of Service: 02/21/23 Vital Signs: Vital Signs Temp Pulse Resp BP Pulse Ox O2 Del Method 02/21/23 07:36 96.8 F 54 18 126/67 97 Room Air 02/21/23 04:00 98.6 F 55 16 95/51 L 95 Room Air Anesthesia: Nerve Block and General Mental Status: Awake Pain Control: Satisfactory Nausea/Vomiting: None Hydration: Adequate Anesthesia-Related Issues: No Anes. Related Issues
--- NOTE | 2023-02-21 10:25 | MHC.CM.PN ---
CM MET WITH PT AT BEDSIDE. PT HAS BEEN NWB X 2 WEEKS IN AN EX FIX DEVICE S/P FALL WITH FX LEFT TIB. PT RETURNS FOR ORIF. PT IS CURRENTLY ACTIVE WITH [facility]. ASSISTED WITH ADL'S VIA S/O WITH WHOM HE RESIDES. LIVES IN A FIRST FLOOR APT. NO COVID VAX NO PCP. WILLING TO COMPLETE A HCP WHILE HERE. DP: HOME WITH RESUMPTION OF [facility]. RETURN REFERRAL SENT. S/[facility] WILL TRANSPORT HOME. CM WILL CONTINUE TO FOLLOW FOR ANY CHANGE IN DC PLAN/NEEDS.
[2023-02-21] MEDS: cefTRIAXone sodium 1 GM in 0.9 % Sodium Chloride 50 ML IV (10:42)
[2023-02-21 10:57] LABS: Appearance Urine Clear; Color Urine Yellow; Glucose Urine UA Negative (Negative); Leukocyte Esterase Urine Large (3+) (Negative); Nitrite Urine Negative (Negative); UMIC TRIGGER UACC YES; Urine Blood Trace (Negative); Urine Ketones Negative (Negative); Urine Protein Negative (Neg-Trace)
[2023-02-21 10:59] LABS: Bacteria Urine None Seen (None Seen); Hyaline Casts Urine 0-2 /LPF (0-2); RBC Urine 0-2 /HPF (0-2); Squamous Epithelial Cell Urine 0-2 /HPF (0-2); UACC Culture Trigger YES; WBC Urine >50 /HPF (0-5)
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
[2023-02-21 11:13] LABS: Amphetamine Screen Urine Not Detected (Not Detect); Barbiturates, Urine Not Detected (Not Detect); Benzodiazepines Screen Urine POSITIVE (Not Detect); Cannabinoid Screen Urine Not Detected (Not Detect); Cocaine Screen Urine POSITIVE (Not Detect); Fentanyl, urine POSITIVE (Not Detect); Opiate Screen Urine POSITIVE (Not Detect); Phencyclidine Screen Urine Not Detected (Not Detect)
[2023-02-21 14:25] LABS: CT PCR NOT DETECTED (Not Detect.); NG PCR DETECTED (Not Detect.)
--- NOTE | 2023-02-21 15:02 | HO.ADDICTPRO ---
Subjective Subjective Date of Service: 02/21/23 Reason For Visit: S/P left tibia ORIF Interim History: Patient currently admitted following ortho procedure for left leg. Consult requested to rec pain management given patients OUD Patient seen in room 362, awake, alert, pleasant and engaged in interview Reporting discomfort in his leg during interview, but denying pain--nerve block has not completely worn off yet. Prior to admission patient was managing pain at home with prescribed oxycodone. Denies any illicit opiate use. Last use reported as being several weeks ago prior to injury. He has been in contact with his outpatient [facility] provider, who he reports recommends he wait until ortho procedures and pain management requirement has stabilized before restarting suboxone. Discussed cravings/urges to use. He reports challenges when at home related to increased stressors and limited mobility. Concerned about pain once nerve block wears off. Review of Systems Constitutional: Reports as per HPI Mental Status Exam Mental Status Exam Patient Appearance: Well Grooomed and Appropriate Patient Orientation: Person, Place, Time and Situation Level of Consciousness: Awake, Appropriate and Alert Mood Description: Calm Affect Description: Calm Thought Process: Intact and Goal Oriented Judgement: Good Diagnostics Vital Signs (24Hr): Vital Signs - 24 hr 02/20/23 17:35 02/20/23 17:40 02/20/23 17:45 Temperature 97.4 F Pulse Rate 74 69 61 Respiratory Rate 16 16 18 Blood Pressure 116/70 113/76 116/77 Pulse Oximetry 96 98 98 Oxygen Delivery Method Room Air Room Air Room Air 02/20/23 17:49 02/20/23 19:30 02/21/23 04:00 Temperature 97.4 F 97.1 F 98.6 F Pulse Rate 68 61 55 Respiratory Rate 18 18 16 Blood Pressure 118/70 112/61 95/51 L Pulse Oximetry 98 97 95 Oxygen Delivery Method Room Air Room Air Room Air 02/21/23 07:36 02/21/23 09:53 Temperature 96.8 F Pulse Rate 54 54 Respiratory Rate 18 Blood Pressure 126/67 126/67 Pulse Oximetry 97 97 Oxygen Delivery Method Room Air BMI result Body Mass Index 28.3 Labs 02/21/23 05:02 02/21/23 05:02 Labs: Laboratory Results - last 48 hr 02/21/23 02/21/23 02/21/23 05:02 05:02 10:40 WBC 14.6 H RBC 3.72 L Hgb 10.8 L Hct 33.0 L MCV 88.7 MCH 29.0 MCHC 32.7 RDW 13.1 Plt Count 341 D MPV 10.3 Immature Gran % (Auto) 0.5 H Neut % (Auto) 86.8 H Lymph % (Auto) 6.9 L [place] % (Auto) 5.6 Eos % (Auto) 0.0 Baso % (Auto) 0.2 Lymph # (Auto) 1.0 L [place] # (Auto) 0.8 Eos # (Auto) 0.0 Baso # (Auto) 0.0 Abs Immat Gran (auto) 0.08 H Absolute Neuts (auto) 12.7 H Absolute Nucleated RBC 0.000 Nucleated RBC % (auto) 0.0 Sodium 137 Potassium 3.9 Chloride 106 Carbon Dioxide 25 Anion Gap 10 L BUN 18 H Creatinine 0.76 Estim Creat Clear Calc 114.6 Estimated GFR > 60 Fasting Glucose 140 H Calcium 9.5 Urine Color Urine Appearance Urine pH Ur Specific [place] Urine Protein Urine Glucose (UA) Urine Ketones Urine Blood Urine Nitrite Ur Leukocyte Esterase Urine RBC Urine WBC Ur Squamous Epith Cells Urine Bacteria Hyaline Casts Urine Opiates Screen POSITIVE H Urine Fentanyl Screen POSITIVE H Ur Barbiturates Screen Not Detected Ur Phencyclidine Scrn Not Detected Ur Amphetamines Screen Not Detected U Benzodiazepines Scrn POSITIVE H Urine Cocaine Screen POSITIVE H U Marijuana (THC) Screen Not Detected Chlam trachomat DNA PCR N.gonorrhoeae DNA (PCR) 02/21/23 02/21/23 10:40 12:40 WBC RBC Hgb Hct MCV MCH MCHC RDW Plt Count MPV Immature Gran % (Auto) Neut % (Auto) Lymph % (Auto) [place] % (Auto) Eos % (Auto) Baso % (Auto) Lymph # (Auto) [place] # (Auto) Eos # (Auto) Baso # (Auto) Abs Immat Gran (auto) Absolute Neuts (auto) Absolute Nucleated RBC Nucleated RBC % (auto) Sodium Potassium Chloride Carbon Dioxide Anion Gap BUN Creatinine Estim Creat Clear Calc Estimated GFR Fasting Glucose Calcium Urine Color Yellow Urine Appearance Clear Urine pH 7.0 Ur Specific [place] 1.010 Urine Protein Negative Urine Glucose (UA) Negative Urine Ketones Negative Urine Blood Trace H Urine Nitrite Negative Ur Leukocyte Esterase Large (3+) H Urine RBC 0-2 Urine WBC >50 H Ur Squamous Epith Cells 0-2 Urine Bacteria None Seen Hyaline Casts 0-2 Urine Opiates Screen Urine Fentanyl Screen Ur Barbiturates Screen Ur Phencyclidine Scrn Ur Amphetamines Screen U Benzodiazepines Scrn Urine Cocaine Screen U Marijuana (THC) Screen Chlam trachomat DNA PCR NOT DETECTED N.gonorrhoeae DNA (PCR) DETECTED A Imaging Radiology Impressions: ITS Impressions Guidance Fluoroscopy 02/20/23 17:45 IMPRESSION: Fluoroscopy guidance for surgical transfixation of the distal tibia with latter-day of the tibial plafond. Medications Medications Current Medications Acetaminophen (Acetaminophen 325 Mg Tablet) 650 mg PO Q6H PRN PRN Reason: Pain, Mild (Pain Scale 1-3) Last Admin: 02/21/23 06:21 Dose: 650 mg Buprenorphine/Naloxone (Buprenorphine/Naloxone 8/2 Mg Film) 1 film SUBLINGUAL BID [facility] Last Admin: 02/21/23 09:59 Dose: Not Given Celecoxib (Celecoxib 200 Mg Capsule) 200 mg PO BID [facility] Last Admin: 02/21/23 09:58 Dose: 200 mg Clonazepam (Clonazepam 1 Mg Tablet) 1 mg PO TID PRN PRN Reason: Anxiety Clonidine HCl (Clonidine Hcl 0.1 Mg Tablet) 0.1 mg PO Q4H PRN; Protocol PRN Reason: Anxiety Docusate Sodium (Docusate Sodium 100 Mg Capsule) 100 mg PO BID [facility] Last Admin: 02/21/23 09:57 Dose: 100 mg Fentanyl (Fentanyl Citrate/Pf 100 Mcg/2 Ml Vial) 25 mcg IVPUSH Q5M PRN; Protocol PRN Reason: Pain, Moderate(Pain Scale 4-6) Hydromorphone HCl (Hydromorphone Hcl 0.5 Mg/0.5 Ml Syringe) 0.25 mg IVPUSH Q4H PRN; Protocol PRN Reason: Pain, Severe (Pain Scale 7-10) Last Admin: 02/21/23 09:58 Dose: 0.25 mg Hydroxyzine HCl (Hydroxyzine Hcl 50 Mg Tablet) 50 mg PO Q6H PRN PRN Reason: Anxiety Lactated Ringer's (Lr) 1,000 mls @ 100 mls/hr IVCONT .Q10H [facility] Last Admin: 02/21/23 14:37 Dose: 100 mls/hr Ceftriaxone Sodium 1 gm/ (Sodium Chloride) 50 mls @ 100 mls/hr IV Q24H [facility] Last Infusion: 08/24/23 11:29 Dose: Infused Ondansetron HCl (Ondansetron Hcl 4 Mg/2 Ml Vial) 4 mg IVPUSH Q8H PRN PRN Reason: Nausea and Vomiting Oxycodone HCl (Oxycodone Hcl Immed Release 5 Mg Tablet) 10 mg PO Q4H PRN PRN Reason: Pain, Moderate(Pain Scale 4-6) Last Admin: 02/21/23 06:21 Dose: 10 mg Oxycodone HCl (Oxycodone Hcl Er 10 Mg Tab.Er.12h) 10 mg PO BID [facility] Last Admin: 02/21/23 09:57 Dose: 10 mg Sodium Chloride (0.9 % Sodium Chloride Flush 3 Ml Syringe) 3 ml IVFLUSH QSHIFT [facility] Last Admin: 02/21/23 14:37 Dose: 3 ml Allergies Allergies Allergy/AdvReac Type Severity Reaction Status Date / Time Penicillins Allergy Hives Verified 02/04/23 03:31 Assessment & Plan Assessment & Plan (1) Opioid use disorder: Status: Acute Code(s): F11.90 - Opioid use, unspecified, uncomplicated Assessment and Plan: will likely require higher doses of pain medication than non opioid dependant individual as long as patient is not overly sedated and maintaining his airway, it is completely appropriate to increase medication doses scheduled PO oxycodone helpful as well given opiate dependance and risk of withdrawal patient reporting he is very focused on maintaining his recovery---prior to this had been in recovery for 7 years. Total time managing care of this patient today _25___ minutes.
[2023-02-21] MEDS: Azithromycin 500 MG TABLET PO (15:09)
[2023-02-21 15:24] VITALS: BP 139/75; PULSE 74; RESP 17; TEMP 36.8; O2SAT 97
--- NOTE | 2023-02-21 15:42 | PM.DS ---
DS: Providers Provider Date of Service: 02/22/23 Date of admission: 02/20/23 12:12 Primary care physician: Unknown Physician Consults: 02/20/23 18:20 Addiction Medicine Routine Consulting Provider: Addiction Covering Reason for consultation: s/p left tibia ORIF, IVDA - Cocaine pain management recommendations Consult to Hospitalist Routine Comment: Consulting Provider: Hospitalist Reason For Exam: routine medical management DS: Diagnosis Discharge Diagnosis (1) Opioid use disorder: Status: Acute DS: Summary Hospital Course Hospital Course: The patient underwent a successful left distal tibia ORIF, they were transferred to PACU and then to the floor to recover. During their stay, their vitals were stable, afebrile at 98.2. Labs were unremarkable, H/H 10.8/33.0. POD 1 they were started on Lovenox for DVT ppx, they also received Physical Therapy services twice a day. Prior to discharge, their splint was clean dry and intact and the plan was to be discharged home with continuation of services. Time Spent with Patient Time attestation: Total time managing care of this patient today ____ minutes. Discharge coordination time: Less than 30 minutes Quality: Safe Use of Opioids Does Pt have an Active Cancer Diagnosis on the Problem List?: No Quality: Stroke Does the patient have a stroke diagnosis?: No Physical Exam Vital Signs: Vital Signs: Last Vital Signs Temp 98.2 F 02/21/23 15:24 Pulse 74 02/21/23 15:24 Resp 17 02/21/23 15:24 BP 139/75 02/21/23 15:24 Pulse Ox 97 02/21/23 15:24 O2 Del Method Room Air 02/21/23 15:24 BMI result Body Mass Index 28.3 Const: General: cooperative, healthy appearing and no acute distress Resp: Effort & Inspection: normal respiratory effort and able to speak in complete sentences Cardio: Rate: regular rate Peripheral pulses: Peripheral pulses 2+ throughout GI: Palpation (GI): Soft to palpation Skin: Lesions: no lesions Rashes: no rashes Extrem: Other: LLE posterior splint is c/d/i. Able to move all digits. NVI. DS: Data Data Completed and Pending Completed studies during hospitalization [Text1]: Procedures Reposition Left Tibia with External Fixation Device, Percutaneous Approach (02/04/23) Labs on day of discharge: Laboratory Results - last 24 hr 02/21/23 02/21/23 02/21/23 05:02 05:02 10:40 WBC 14.6 H RBC 3.72 L Hgb 10.8 L Hct 33.0 L MCV 88.7 MCH 29.0 MCHC 32.7 RDW 13.1 Plt Count 341 D MPV 10.3 Immature Gran % (Auto) 0.5 H Neut % (Auto) 86.8 H Lymph % (Auto) 6.9 L [place] % (Auto) 5.6 Eos % (Auto) 0.0 Baso % (Auto) 0.2 Lymph # (Auto) 1.0 L [place] # (Auto) 0.8 Eos # (Auto) 0.0 Baso # (Auto) 0.0 Abs Immat Gran (auto) 0.08 H Absolute Neuts (auto) 12.7 H Absolute Nucleated RBC 0.000 Nucleated RBC % (auto) 0.0 Sodium 137 Potassium 3.9 Chloride 106 Carbon Dioxide 25 Anion Gap 10 L BUN 18 H Creatinine 0.76 Estim Creat Clear Calc 114.6 Estimated GFR > 60 Fasting Glucose 140 H Calcium 9.5 Urine Color Urine Appearance Urine pH Ur Specific [place] Urine Protein Urine Glucose (UA) Urine Ketones Urine Blood Urine Nitrite Ur Leukocyte Esterase Urine RBC Urine WBC Ur Squamous Epith Cells Urine Bacteria Hyaline Casts Urine Opiates Screen POSITIVE H Urine Fentanyl Screen POSITIVE H Ur Barbiturates Screen Not Detected Ur Phencyclidine Scrn Not Detected Ur Amphetamines Screen Not Detected U Benzodiazepines Scrn POSITIVE H Urine Cocaine Screen POSITIVE H U Marijuana (THC) Screen Not Detected Chlam trachomat DNA PCR N.gonorrhoeae DNA (PCR) 02/21/23 02/21/23 10:40 12:40 WBC RBC Hgb Hct MCV MCH MCHC RDW Plt Count MPV Immature Gran % (Auto) Neut % (Auto) Lymph % (Auto) [place] % (Auto) Eos % (Auto) Baso % (Auto) Lymph # (Auto) [place] # (Auto) Eos # (Auto) Baso # (Auto) Abs Immat Gran (auto) Absolute Neuts (auto) Absolute Nucleated RBC Nucleated RBC % (auto) Sodium Potassium Chloride Carbon Dioxide Anion Gap BUN Creatinine Estim Creat Clear Calc Estimated GFR Fasting Glucose Calcium Urine Color Yellow Urine Appearance Clear Urine pH 7.0 Ur Specific [place] 1.010 Urine Protein Negative Urine Glucose (UA) Negative Urine Ketones Negative Urine Blood Trace H Urine Nitrite Negative Ur Leukocyte Esterase Large (3+) H Urine RBC 0-2 Urine WBC >50 H Ur Squamous Epith Cells 0-2 Urine Bacteria None Seen Hyaline Casts 0-2 Urine Opiates Screen Urine Fentanyl Screen Ur Barbiturates Screen Ur Phencyclidine Scrn Ur Amphetamines Screen U Benzodiazepines Scrn Urine Cocaine Screen U Marijuana (THC) Screen Chlam trachomat DNA PCR NOT DETECTED N.gonorrhoeae DNA (PCR) DETECTED A Discharge Plan Discharge Anticipated Discharge Date/Time: 02/22/23 13:39 Patient Disposition: Home, Self-Care Discharge Diagnosis: s/p left tibia ORIF Referrals: Crystal Macedo PA-C [Physician Beader Tender] - 03/07/23 Discharge Medications: New acetaminophen 325 mg Tablet 650 mg PO Q6H PRN (Reason: Pain, Mild (Pain Scale 1-3)) 30 Days Qty: 240 0RF oxycodone 10 mg tablet 10 mg PO Q4H PRN (Reason: Pain, Moderate(Pain Scale 4-6)) 7 Days Qty: 42 0RF Rx Instructions: Partial Fill upon patient request. docusate sodium 100 mg Capsule 100 mg PO BID 30 Days Qty: 60 0RF sulfamethoxazole-trimethoprim [Bactrim DS] 800-160 mg tablet 0.66201 tab PO BID 7 Days Qty: 13 0RF Continued (DME) Crutches See Rx Instructions .ROUTE .MEDSUPPLY Qty: 1 0RF Rx Instructions: As directed (DME) silvia Misc See Rx Instructions .MEDSUPPLY Qty: 1 0RF Rx Instructions: Folding Front wheeled silvia clonidine HCl 0.1 mg tablet 0.1 mg PO Q4-6H PRN (Reason: Anxiety) clonazepam 1 mg tablet 1 mg PO TID PRN (Reason: Anxiety) hydroxyzine HCl 50 mg tablet 50 mg PO Q6-8H PRN (Reason: Anxiety) ibuprofen 600 mg tablet 600 mg PO Q6H PRN (Reason: Pain) enoxaparin 40 mg/0.4 mL Syringe 40 mg subcut Q24H 42 Days Qty: 16.8 0RF celecoxib 200 mg Capsule 200 mg PO BID 30 Days Qty: 60 0RF Discontinued docusate sodium 100 mg Capsule 100 mg PO BID 14 Days Qty: 28 0RF oxycodone 10 mg tablet 10 mg PO Q4H PRN (Reason: Pain, Moderate(Pain Scale 4-6)) 7 Days Qty: 42 0RF Rx Instructions: Partial Fill upon patient request. Discharge Orders: Discharge Order (Routine); Ordered 02/22/23 Ordered By: Namita Orosco Diet: Advance to usual diet Activity on Discharge: Use Splints or Immobilizers Stand Alone Forms: Patient Portal Discharge page Activity Restrictions/Additional Instructions: Keep splint clean, dry, and intact Elevate throughout the day Nonweightbearing left lower extremity Do not bathe or shower--keep splint dry Call [facility] orthopedics with any questions or concerns. F/u with PCP for UTI syptoms - Bactrim to be taken by mouth twice a day for 7 days Follow up with orthopedics on 03/07/23 at 10:30am with Crystal Macedo PA-C Care Plan Goals: restore fxn to left ankle Health Concerns: None Plan of Treatment: Keep splint clean, dry, and intact Elevate throughout the day Nonweightbearing left lower extremity Do not bathe or shower--keep splint dry Call [facility] orthopedics with any questions or concerns. Follow up with orthopedics on 03/07/23 at 10:30am with Crystal Macedo PA-C Assessment: stable for d/c
[2023-02-21 19:22] VITALS: BP 145/85; PULSE 75; RESP 16; TEMP 36.7; O2SAT 98
[2023-02-21] MEDS: clonazePAM 1 MG TABLET PO (20:45)
[2023-02-22] MEDS: HYDROmorphone HCl 0.5 MG/0.5 ML SYRINGE 0.25 MG IVPUSH ×2 (02:54→11:38)
[2023-02-22 03:41] VITALS: BP 123/84; PULSE 59; RESP 16; TEMP 36.4; O2SAT 97
[2023-02-22 03:52] LABS: Syphilis Screen Nonreactive (Nonreactive)
[2023-02-22 04:03] LABS: HBc Num1 0.19 S/CO (0.00-0.79); HBsAGNum1 0.34 S/CO (0.00-0.99); HIV AB/AG Nonreactive (Nonreactive); HIV Num 1 0.06 S/CO (0.00-0.99); Hepatitis A Antibody IgM 0.32 Index (0-0.79); Hepatitis B Core Antibody Nonreactive (Nonreactive); Hepatitis B Surface Antigen Negative (Negative); ~HepC Num1 11.91 S/CO (0.00-0.79); ~Hepatitis A Antibody IgM Nonreactive (Nonreactive); ~Hepatitis B Surface Antibody REACTIVE (Nonreactive); ~Hepatitis C Antibody Reactive (Nonreactive)
[2023-02-22 05:39] LABS: MANUAL DIFF FLAG NO
[2023-02-22 05:44] LABS: Basophils Absolute Auto 0.1 X10*3/uL (0.0-0.2); Basophils Percent Auto 0.5 % (0-2); Eosinophils Absolute Auto 0.1 X10*3/uL (0.0-0.4); Eosinophils Percent Auto 0.9 % (0-4); Hematocrit 32.8 % (42.0-52.0); Hemoglobin 10.6 g/dl (14.0-18.0); Imm Gran Abs Auto 0.04 X10*3/uL (0.00-0.03); Imm Gran Pct Auto 0.4 % (0.0-0.4); Lymphocytes Absolute Auto 3.2 X10*3/uL (1.2-4.9); Mean Corpuscular HGB Conc 32.3 g/dl (31.0-36.0); Mean Corpuscular Hemoglobin 28.6 pg (27.0-33.0); Mean Corpuscular Volume 88.4 fL (80.0-98.0); Mean Platelet Volume 10.1 fL (9.4-12.4); Monocytes Absolute Auto 0.9 X10*3/uL (0.1-1.2); Monocytes Percent Auto 8.6 % (2-11); Neutrophils Absolute Auto 6.4 x10*3/uL (2.0-8.3); Neutrophils Percent Auto 59.6 % (45-73); Platelet Count 313 X10*3/uL (160-400); Red Blood Count 3.71 X10*6/uL (4.60-5.80); Red Cell Distribution Width 13.2 % (11.0-16.0); White Blood Count 10.8 X10*3/uL (4.8-10.8)
[2023-02-22 06:05] LABS: Anion Gap 11 (12-20); Blood Urea Nitrogen 12 mg/dL (9-16); Calcium 9.1 mg/dL (8.4-10.2); Carbon Dioxide 29 mmol/L (22-29); Chloride 108 mmol/L (96-108); Creatinine Clr Calc Pharmacy 110.2; Estimated Glomerular Filt Rate > 60; Glucose Fasting 83 mg/dL (60-99); Potassium 3.6 mmol/L (3.3-5.1); Sodium 144 mmol/L (135-145)
--- NOTE | 2023-02-22 07:50 | P.F2F_ITS ---
Service Date Service Date: 02/22/23 Encounter Date of encounter: 02/22/23 Reasons for Services Signs and symptoms assessed: s/p lt tibia pilon ORIF. Pt. is considered homebound due to recent surgery. Unable to drive, poor balance, poor gait mechanics. Reason for physical therapy: home safety and mobility, therapeutic exercises, restore joint function, gait/transfer training, assess need for DME and ADL training Reason for occupational therapy: home safety and mobility, therapeutic exercises, restore joint function, gait/transfer training, assess need for DME and ADL training Homebound: Leaving the home is medically contraindicated at this time without the asist of a device and/or another person due th the listed conditions above and below. Reason homebound: unsteady gait / fall risk, leg weakness, pain with ambulation, pain with transfers, poor balance / fall risk and unable to drive Certification: Based on the above findings, I certify that this patient is confined to the home and needs intermittent penitentiary care, physical therapy and/or speech therapy, or continues to need occupational therapy. The patient is under my care, and I have initiated the establishment of the plan of care. The patient will be followed by a physician who will periodically review the plan of care. Time Spent With Patient Time: Total time managing care of this patient today ____ minutes.
[2023-02-22 07:59] VITALS: BP 136/84; PULSE 54; RESP 18; TEMP 36.4; O2SAT 97
[2023-02-22] MEDS: oxyCODONE HCl ER 10 MG TAB.ER.12H PO (08:20)
[2023-02-22] MEDS: Docusate Sodium 100 MG CAPSULE PO (08:20)
[2023-02-22] MEDS: Celecoxib 200 MG CAPSULE PO (08:20)
--- NOTE | 2023-02-22 08:43 | MHC.CM.PN ---
DP: PT HAS BEEN MEDICALLY CLEARED FOR DC HOME WITH RESUMPTION OF HOME SERVICES WITH [facility]. [facility] NOTIFIED OF TODAY'S DC. MOTHER WILL TRANSPORT HOME.
[2023-02-22 09:20] VITALS: BP 136/84; PULSE 54; O2SAT 97
--- NOTE | 2023-02-22 09:52 | MHC.RECOVRN ---
In to check in with pt, pt reports adequate pain management at this time it has it's ups and downs plan for pt to d/c from hospital today, pt reports he will be calling his outpatient [facility] provider to set up a plan with him for when pt is home. Pt expressing that he would like to explore therapy when he is discharged. Pt provided with a list of local providers, denies questions at this time. Encouraged to call the [facility] anytime with questions or concerns. Pt verbalized understanding.
[2023-02-22] MEDS: cefTRIAXone sodium 1 GM in 0.9 % Sodium Chloride 50 ML IV (09:56)
[2023-02-22] MEDS: oxyCODONE HCl Immed Release 5 MG TABLET 10 MG PO (13:33)
--- NOTE | 2023-02-25 12:44 | W.PM.OPN ---
Operative Note Operative Note Date of Service: 02/20/23 Narrative: Pre-op diagnosis: left tibial plafond fracture Post-op diagnosis: same Procedure: ORIF left tibial plafond Implants: [place] distal tibial locking plate Surgeon: Tomy Villalobos MD Anesthesia: GETA and regional Was an Compressed Yeast Supervisor used for this Procedure?: Yes Compressed Yeast Supervisor: Namita Orosco Estimated blood loss (mL): 150 Tourniquet time (min): 120 IV fluids (mL): 1,500 Pathology: none sent Condition: stable Disposition: PACU Procedure in detail: Patient was brought to the operating room and placed supine on the surgical table. The external fixator was removed and the calcaneal pin was left in fro traction purposes but covered with sterile iodoban. The limb was then prepped and draped in standard sterile fashion and a time out was called to identify proper site, proper procedure and IV antibiotics per weight were administered. I began by exsanguinating the limb. I began by identifying the fracture using biplanar fluoroscopy. A rosa isela incision was made over the fracture at the medial shaft. This allowed access to the the oblique fracture and I cleaned the fracture fragments out with irrigation and curettage. A long medial plate was selected and a rosa isela incision was made over the medial malleolus and the plate was inserted percutaneously. I then used to variety of techniques to try to achieve compression at the joints including making percutaneous stab incisions and clamping at the fracture. I was able to achieve reasonable compression with combination of clamp and traction. I then placed a 4-0 cortical screw through the plate distally and was able to achieve excellent compression of the fracture. There was extensive comminution and anatomic reduction of the entirety of the plafond and was not possible but I was extremely satisfied with the reduction on both the AP and lateral projections using the above technique. I then continued to place cortical nonlocking screws through the plate and further reduced the fracture so that the joint line was near anatomic. I was satisfied with the screw position on both AP and the lateral projections. There were a total of 5 incisions scattered about the medial and lateral aspect of the distal tibia. The incision over the medial malleolus and more proximal over the medial shaft were each approximately 2 cm in length. These were irrigated copiously and closed. The neck incisions over the lateral aspect of the tibia were irrigated and closed with absorbable suture and linn. The Steinmann pin in the calcaneus was cut and then removed. External fixation sites were cleaned but not closed. I took my final radiographs and was again satisfied with the position of the hardware and the fracture reduction. Patient was placed into a well-padded posterior splint. Of note there was a posterolateral abrasion that was cleaned and appeared healthy prior to surgery. This was covered with Xeroform and bacitracin ointment. Patient was then extubated brought to recovery room in stable condition. There were no known complications.
== END 2023-02-22 14:29 | disposition home health service (06) | DRG 313 ==
LOC: HO.SSSA 12:28 → HO.S3 17:35
PROVIDERS: Nurse Practitioner; Physician Assistant; Student in an Organized Health Care Education/Training Program; Admitting Provider Orthopaedic Surgery; Visit Provider Orthopaedic Surgery
PROC: 0QSH04Z Reposition Left Tibia with Internal Fixation Device, Open Approach (ICD-10-PCS; principal; 2023-02-20 14:10)
DX: S82.872A Displaced pilon fracture of left tibia, initial encounter for closed fracture (principal); F11.20 Opioid dependence, uncomplicated; F41.9 Anxiety disorder, unspecified; F17.210 Nicotine dependence, cigarettes, uncomplicated; X58.XXXA Exposure to other specified factors, initial encounter; G89.18 Other acute postprocedural pain; Z71.6 Tobacco abuse counseling; Z79.899 Other long term (current) drug therapy
CPT/HCPCS: 0353U; 36415; 80048; 80307; 81001; 85025; 86704; 86706; 86709; 86780; 86803; 87086; 87340; 87389; 93005; 97110; 97162; 97166; C1713; J0696; J1170; J2250; J2371; J3010

== ENCOUNTER → 2023-02-20 12:12 | Outpatient (BNV) | payer OTHER, SELFPAY | PROVIDERS: Admitting Provider Orthopaedic Surgery; Visit Provider Student in an Organized Health Care Education/Training Program | DX: S82.873A Displaced pilon fracture of unspecified tibia, initial encounter for closed fracture (principal); B18.2 Chronic viral hepatitis C | CPT/HCPCS: 99222 ==

== ENCOUNTER → 2023-02-20 12:12 | Outpatient (BNV) | payer OTHER, SELFPAY | PROVIDERS: Admitting Provider Orthopaedic Surgery; Visit Provider Nurse Practitioner Psychiatric/Mental Health | DX: F11.90 Opioid use, unspecified, uncomplicated (principal) | CPT/HCPCS: 99231 ==

== ENCOUNTER → 2023-02-20 12:12 | Outpatient (BNV) | payer OTHER, SELFPAY | PROVIDERS: Admitting Provider Orthopaedic Surgery; Visit Provider Orthopaedic Surgery | DX: S82.873A Displaced pilon fracture of unspecified tibia, initial encounter for closed fracture (principal); N39.0 Urinary tract infection, site not specified; F11.90 Opioid use, unspecified, uncomplicated | CPT/HCPCS: 27827; 99024; 99238; G0180 ==

== ENCOUNTER 2023-03-07 06:46 | Outpatient (REF) | payer OTHER, SELFPAY | END 2023-03-07 06:47 | disposition home or self-care (01) | LOC: HO.HOSX 06:46 | PROVIDERS: Visit Provider Physician Assistant | DX: Z13.89 Encounter for screening for other disorder (principal) ==

== ENCOUNTER 2023-03-14 10:47 | Outpatient (REF) | payer OTHER, SELFPAY ==
--- NOTE | ~2023-03-14 | XR_ITS ---
EXAMINATION: XR ANKLE, RIGHT CLINICAL INFORMATION: Pain in right ankle and joints of right foot. COMPARISON: 02/20/2023. TECHNIQUE: AP, lateral, and mortise views of the right ankle. FINDINGS: Status post surgical fixation with a distal tibial sideplate and multiple screws transfixing previously identified tibial fracture. Hardware appears intact. Diffuse soft tissue swelling with emphysematous changes. There is mild displacement of fracture fragments as previously noted. 8 mm rounded lucency in the calcaneus. Bones are demineralized. Redemonstration of previously noted tiny avulsion fracture involving the posterior medial cortex of the distal fibula. Previously demonstrated nondisplaced transversely-oriented fracture through the inferior talus was better characterized on CT scan of 02/04/2023. XR/XR ankle RT min 3V IMPRESSION: Status post surgical fixation with sideplate and screws of previously identified comminuted fracture of the tibial plafond. Redemonstration of previously noted tiny avulsion fracture involving the posteromedial cortex of the distal fibula. Previously demonstrated nondisplaced transversely-oriented fracture through the inferior talus was better characterized on CT scan of 02/04/2023.
== END 2023-03-14 10:48 | disposition home or self-care (01) ==
LOC: HO.HOSX 10:47
PROVIDERS: Visit Provider Physician Assistant
DX: S82.872D Displaced pilon fracture of left tibia, subsequent encounter for closed fracture with routine healing (principal)
CPT/HCPCS: 73610

== ENCOUNTER 2023-03-14 13:02 | Outpatient (AMB) | payer OTHER, SELFPAY ==
--- NOTE | 2023-03-14 13:19 | MHC.OFFVIS ---
Intake Intake Visit Reasons: PO-LT Tibia ORIF 02/20/23NE Intake Note: Nakul a 37 year old male who presents today for a post operative left tibia ORIF on 02/20/23 NE. Patient reports bleeding at incision site. His pain level is 8 out of 10. States PT is on hold until he is able to bear weight. Allergies Penicillins Allergy (Verified 03/14/23 13:21) Hives HPI PO-LT Tibia ORIF 02/20/23NE HPI Details 37-year-old male who returns to the office today for post-op left tibia ORIF, 02/20/[address] Villalobos. He states he has pain in his ankle and rates the pain as 8 on the scale of 0-10. He also c/o bleeding at the incision site. He states he has completed with physical therapy and he is able to bear weight. [facility] Medical History (Updated 03/24/23 @ 22:14 by Crystal Macedo PA-C) Hepatitis C Opioid use disorder Avulsion fracture of distal fibula Fracture of talus Social History Household Members: None Housing: House Do you presently have visiting nurse or other home services: No Unable to assess alcohol history related to: Unable to respond Patient Tobacco Use Status: Current everyday Tobacco user Tobacco use type: Cigarette Cigarette Packs Per Day: 0.5 Cigarettes Per Day: 10 Years Smoked: 17 Second Hand Smoke Exposure: Yes Substance Use Type: IV Drugs service: No Review of Systems Const All systems reviewed & are unremarkable except as noted in HPI and below Physical Exam Extrem Other: Left ankle incisions are intact, linn intact. There is some purulant drainage along the medial incision with surrounding erythema. Assessment & Plan Assessment & Plan (1) Closed pilon fracture of tibia: Code(s): S82.873A - Displaced pilon fracture of unspecified tibia, initial encounter for closed fracture Qualifiers: Encounter type: subsequent encounter Fracture alignment: displaced Laterality: left Fracture healing: with routine healing Qualified Code(s): S82.872D - Displaced pilon fracture of left tibia, subsequent encounter for closed fracture with routine healing Plan: [place] removed today. The incisions were cleaned and I was able to express some of the puss from the medial incision, but not all of it as the patient was extremely uncomfortable. I did placed him on abx. I explained the importance of taking these abx until completed. He was placed in a posterior splint, NWB. I stressed the importance of NWB. He should see me back in 1 week and I stressed the importance of this appt as he has what appears to be atleast a superficial infection and we need to monitor this. I did explain if he develops fever, chills, sweats or severe pain he should contact our office or go to the ED for further evaluation. Orders: Orders XR ankle RT min 3V 03/14/23 M25.571 - Pain in right ankle and joints of right foot Medications: New clindamycin HCl 300 mg PO Q6H 40 caps 0RF 10 days Changed From oxycodone Partial Fill upon patient request. 10 mg PO Q6H 4 days PRN 16 tabs 0RF Pain, Moderate(Pain Scale 4-6) To oxycodone Partial Fill upon patient request. 10 mg PO Q6H PRN 28 tabs 0RF Pain, Moderate(Pain Scale 4-6) 7 days Patient Instructions: Scribed for Crsytal Macedo PA-C, by Estuardo Bang medical physicist, on 03/14/2023 at 1:00 PM EST. I, Crystal Macedo PA-C, have personally reviewed and agree with the information entered by the scribe. Coding Level of Care Code Global (77677) Diagnoses Closed displaced pilon fracture of left tibia with routine healing, subsequent encounter S82.872D Encounter type: subsequent encounter Fracture alignment: displaced Laterality: left Fracture healing: with routine healing
== END 2023-03-14 15:35 | disposition home or self-care (01) ==
PROVIDERS: Visit Provider Physician Assistant
DX: S82.872D Displaced pilon fracture of left tibia, subsequent encounter for closed fracture with routine healing (principal)
CPT/HCPCS: 99024

== ENCOUNTER 2023-03-28 09:15 | Outpatient (REF) | payer OTHER, SELFPAY | END 2023-03-28 09:16 | disposition home or self-care (01) | LOC: HO.HOSX 09:15 | PROVIDERS: Visit Provider Physician Assistant | DX: Z13.89 Encounter for screening for other disorder (principal) ==

== ENCOUNTER 2023-04-04 13:38 | Outpatient (AMB) | payer OTHER, SELFPAY ==
--- NOTE | 2023-04-04 13:41 | MHC.OFFVIS ---
Intake Vital Signs 04/04/23 13:48 Height 5 ft 2 in Weight 150 lb BMI 27.4 Intake Visit Reasons: PO-LT Tibia ORIF 02/20/23NE Intake Note: Nakul a 37 year old male who presents today for a post operative left tibia ORIF on 02/20/23 NE. Patient reports he has had mild pain. States he missed his last P/O visit therefore he wasn't able to get refill. Allergies Penicillins Allergy (Verified 04/04/23 13:50) Hives HPI PO-LT Tibia ORIF 02/20/23NE HPI Details 37-year-old male who returns to the office today for post-op right TKA, 03/19/[address] Villalobos. He continues to have mild pain but is doing well otherwise. He has no other concerns. [facility] Medical History (Updated 03/24/23 @ 22:14 by Crystal Macedo PA-C) Hepatitis C Opioid use disorder Avulsion fracture of distal fibula Fracture of talus Social History Household Members: None Housing: House Do you presently have visiting nurse or other home services: No Unable to assess alcohol history related to: Unable to respond Patient Tobacco Use Status: Current everyday Tobacco user Tobacco use type: Cigarette Cigarette Packs Per Day: 0.5 Cigarettes Per Day: 10 Years Smoked: 17 Second Hand Smoke Exposure: Yes Substance Use Type: IV Drugs service: No Review of Systems Const All systems reviewed & are unremarkable except as noted in HPI and below Physical Exam Vital Signs: BMI result Body Mass Index 27.4 Extrem Other: Left ankle: Incision clean, dry and intact. No area of skin breakdown or drainage. No erythema or swelling. No tenderness along the incision site. NVI. Results Reviewed Results Reviewed: Xrays were obtained in the office today and personally reviewed by me of the left ankle show intact hardware with intact ankle mortise and stable fracture alignment. Assessment & Plan Assessment & Plan (1) Closed pilon fracture of tibia: Code(s): S82.873A - Displaced pilon fracture of unspecified tibia, initial encounter for closed fracture Qualifiers: Encounter type: subsequent encounter Fracture alignment: displaced Fracture healing: with routine healing Laterality: left Qualified Code(s): S82.872D - Displaced pilon fracture of left tibia, subsequent encounter for closed fracture with routine healing Plan Images reviewed with Dr. Villalobos. We will place him in a tall boot. He will continue non weight bearing which I did express the importance of with the patient as we need the bone along with the joint surface to heal. I did explain to him that although his incision is healed and the ankle does appear to look good and he is not showing any signs of infection, we cannot guarantee that there is no deep infection. However, the importance factor here is to get the bone to heal. He will work on some home exercises for ROM. I did give him a handout today. I would like to see him back in 6 weeks with x-rays, sooner if needed. We also discussed the refill of oxycodone. I will give him a prescription today to take twice a day and explained that with additional refills. We will be weaning him from this. He does have a doctor in place who does manage his pain management and our goal is to transition him to into their care. The patient is in understanding of this. Orders: Orders XR ankle LT min 3V Today M25.572 - Pain in left ankle and joints of left foot Medications: Changed From oxycodone Partial Fill upon patient request. 10 mg PO Q6H 7 days PRN 28 tabs 0RF Pain, Moderate(Pain Scale 4-6) To oxycodone Partial Fill upon patient request. 10 mg PO Q12H PRN 14 tabs 0RF Pain, Moderate(Pain Scale 4-6) 7 days Patient Instructions: Scribed for Crystal Macedo PA-C, by Estuardo Bang medical assistant prn, on 04/04/2023 at 1:15 PM EST. ICrystal PA-C, have personally reviewed and agree with the information entered by the scribe. Coding Level of Care Code Global (02486) Diagnoses Closed displaced pilon fracture of left tibia with routine healing, subsequent encounter S82.872D Encounter type: subsequent encounter Fracture alignment: displaced Fracture healing: with routine healing Laterality: left
[2023-04-04 13:48] VITALS: BMI 27.4
== END 2023-04-04 14:47 | disposition home or self-care (01) ==
PROVIDERS: Visit Provider Physician Assistant
DX: S82.872D Displaced pilon fracture of left tibia, subsequent encounter for closed fracture with routine healing (principal)
CPT/HCPCS: 99024

== ENCOUNTER 2023-04-04 13:38 | Outpatient (REF) | payer OTHER, SELFPAY | END 2023-04-04 13:39 | disposition home or self-care (01) | LOC: HO.HOSX 13:38 | PROVIDERS: Visit Provider Physician Assistant | DX: M25.572 Pain in left ankle and joints of left foot (principal); S82.872D Displaced pilon fracture of left tibia, subsequent encounter for closed fracture with routine healing; X58.XXXD Exposure to other specified factors, subsequent encounter; Z96.651 Presence of right artificial knee joint | CPT/HCPCS: 73610 ==

== ENCOUNTER 2023-05-16 09:01 | Outpatient (REF) | payer OTHER, SELFPAY | END 2023-05-16 09:02 | disposition home or self-care (01) | LOC: HO.HOSX 09:01 | PROVIDERS: Visit Provider Physician Assistant | DX: Z13.89 Encounter for screening for other disorder (principal) ==

== ENCOUNTER 2025-04-21 14:29 | Outpatient (AMB) | payer OTHER, SELFPAY ==
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
[2025-04-21 14:44] VITALS: BP 130/80; PULSE 78; TEMP 36.3; O2SAT 97; BMI 33.1
== END 2025-04-21 15:33 | disposition home or self-care (01) ==
LOC: HO.HMCH 14:29
PROVIDERS: Visit Provider Internal Medicine
DX: Z00.00 Encounter for general adult medical examination without abnormal findings (principal); S82.872D Displaced pilon fracture of left tibia, subsequent encounter for closed fracture with routine healing; R21 Rash and other nonspecific skin eruption; F17.200 Nicotine dependence, unspecified, uncomplicated

== ENCOUNTER → 2025-04-21 14:29 | Outpatient (BNVA) | payer OTHER, SELFPAY | PROVIDERS: Visit Provider Internal Medicine | DX: S82.872D Displaced pilon fracture of left tibia, subsequent encounter for closed fracture with routine healing (principal); R21 Rash and other nonspecific skin eruption; F17.210 Nicotine dependence, cigarettes, uncomplicated; Z98.890 Other specified postprocedural states; Z00.00 Encounter for general adult medical examination without abnormal findings | CPT/HCPCS: 99202; 99385 ==